=== PATIENT | male | born 1970 | race African-American/Black ===

== ENCOUNTER 2024-05-22 21:02 | Inpatient (IN) | payer OTHER, SELFPAY ==
[2024-05-22] VITALS (8 sets, daily range): BP systolic 73–153; BP diastolic 38–98; BMI 34.4
[2024-05-22 18:14] LABS: % Basophils 1.2 % (0-2); % Eosinophils 3.2 % (0-6); % Immature Granulocytes 0.7 % (0-0.5); % Monocytes 13.5 % (1.7-9.3); % Neutrophils 33.4 % (42.2-75.2); Absolute Basophils 0.1 10^3/uL (0-0.2); Absolute Eosinophils 0.1 10^3/uL (0-0.7); Absolute Lymphocytes 2.1 10^3/uL (1.2-3.4); Absolute Monocytes 0.6 10^3/uL (0.1-0.6); Absolute Neutrophils 1.4 10^3/uL (1.4-6.5); Hematocrit 42.3 % (39.0-52.0); Hemoglobin 15.2 g/dL (13.0-18.0); Mean Corp Hgb Conc. 35.9 g/dL (33.0-37.0); Mean Corpuscular Hgb 29.3 pg (27.0-31.0); Mean Corpuscular Volume 81.5 fL (80.0-94.0); Mean Platelet Volume 10.5 fL (7.4-10.4); Nucleated Red Blood Cells % 0 % (-); Platelet Count 204 10^3/uL (130-400); Red Blood Cell Count 5.19 10^6/uL (4.70-6.10); White Blood Cell Count 4.3 10^3/uL (4.8-10.8)
[2024-05-22 18:23] LABS: APTT 35.7 Sec (23.4-35.0)
[2024-05-22 18:31] LABS: ALT (SGPT) 17 U/L (0-50); AST (SGOT) 22 U/L (17-59); Albumin 4.8 g/dl (3.5-5.0); Alkaline Phosphatase 72 U/L (38-126); Blood Urea Nitrogen 21 mg/dl (9-20); Calcium 9.9 mg/dl (8.4-10.2); Carbon Dioxide 14 mmol/L (22-30); Chloride 104 mmol/L (98-107); Glucose 152 mg/dl (70-99); Potassium 4.8 mmol/L (3.5-5.1); Sodium 141 mmol/L (135-145); Total Protein 7.5 g/dl (6.3-8.2); eGFR > 60.00
[2024-05-22 18:38] LABS: NT-proBNP 156 pg/ml
--- NOTE | 2024-05-22 18:51 | ED.GENMED ---
History of Present Illness
<Di Lee PA-C - Last Filed: 05/22/24 23:39>
General
Chief Complaint: Change in Mental Status
Source: patient, family and ambulance crew
Exam Limitations: none
Time Seen by Provider: 05/22/24 18:00
History of Present Illness
History of Present Illness:
Patient is a 54-year-old male with past medical history of CVA last year which resulted in right-sided weakness, right-sided facial droop, as well as expressive aphasia, defibrillator in place, who presents to the emergency department via EMS from
home for evaluation after he reportedly lost consciousness. Family stated that they heard a scream from upstairs like the patient was in pain. They reports that they came upstairs to check on the patient and he was on the ground. He appeared to
be clutching his chest and they are unsure if he was experiencing chest pain. They were unsure if the patient was being shocked by his defibrillator. Patient can answer some questions and initially when asked if he has chest pain, patient says yes
however later he said no. Patient was reportedly not answering questions for medics but then started to answer more questions once they arrived to the emergency department. Patient is unable to offer any additional complaints. Patient endorses a
history of seizure disorder however patient's son denies it.
Past History
<Di Lee PA-C - Last Filed: 05/22/24 23:39>
Past History
ED Past Medical History: CVA
ED Past Surgical History: Other (Defibrillator placement)
Social History
Tobacco: Non-smoker
Alcohol: None
Drug: None
Review of Systems
<Di Lee PA-C - Last Filed: 05/22/24 23:39>
Review of Systems
Allergies reviewed?: Yes
Unable to obtain full review of systems at this time due to: other (expressive aphasia)
Other source history: family and ambulance crew
All Other Systems: Not applicable
Constitutional: Reports no symptoms
EENT: Reports no symptoms
Respiratory: Reports no symptoms
Cardiac: Reports chest pain (possible)
ABD/GI: Reports no symptoms
: Reports no symptoms
Musculoskeletal: Reports no symptoms
Skin: Reports no symptoms
Neurological: Reports no symptoms
Endocrine: Reports no symptoms
Hematologic/Lymphatic: Reports no symptoms
Psychiatric: Reports no symptoms
Phy Exam
<Di Lee PA-C - Last Filed: 05/22/24 23:39>
General Physical Exam
General Presentation: well appearing and no apparent distress
General Skin: warm and dry
General Habitus: normal
General Mental: alert
General Hydration: appears well hydrated
ENT Exam
ENT Exam: EOMI, pharynx normal, neck supple, normocephalic and other (abrasions to the left lateral aspect of the tongue)
Eye Exam
Eye Exam: PERRL, cornea clear and conjunctiva normal
Cardiovascular Exam
Cardiovascular Exam: regular rate/rhythm, no edema, no murmur and normal peripheral pulses
Pulmonary Exam
Pulmonary Exam: lungs clear, no respiratory distress, no rales, no crackles, no rhonchi, no stridor, no wheezing and no cough
Gastrointestinal Exam
Gastrointestinal Exam: normal bowel sounds, non tender, soft, no organomegaly, no pulsatile mass and non distended
Neurological Exam
Neurological Exam: alert, expressive aphasia and other (right sided facial droop, RUE and RLE weakness)
Musculoskeletal Exam
Musculoskeletal Exam: full ROM and no edema
Skin Exam
Skin Exam: normal color, warm/dry, no rash and no petechia
Psychiatric Exam
Psychiatric Exam: normal mood/affect
Course
<Di Lee PA-C - Last Filed: 05/22/24 23:39>
Orders/Labs/Results
Orders:
Orders
05/22/24 Breakfast
Sodium, 2 Gram
Low Sodium: 2000 brian/ 17 CHO Diabetic
05/22/24 17:56
EKG [Electrocardiogram (*1)] Stat
Reason for Study: Fatigue / Weakness
05/22/24 17:57
EKG- Treatment ONCE
05/22/24 18:04
Alcohol Urgent
CBC/With Diff [Complete Blood Count/With Diff] Urgent
CMP [Comprehensive Metabolic Panel] Urgent
Magnesium Urgent
Comment: ADD ON
PTT Urgent
Pro-BNP [NT-proBNP] Urgent
Troponin I Urgent
Comment: ADD ON
05/22/24 18:23
CT Head W/o Iv Contrast Urgent
Comment:
Reason For Exam: fall, hx of CVA
05/22/24 18:43
Add On- LAB Stat
Tests Added?: TROPONIN
05/22/24 19:12
Interrogate Pacemaker- Treatment ONCE
05/22/24 20:42
Admit/Transfer Patient As Directed
Co-Sign Provider:
Level of Care: Inpatient admission
Assign to:: Telemetry
Physician / Group: Htay
Diagnosis: Syncope, BARBY, Metabolic Acidosis
Reason for Telemetry: Syncope
Date to Stop Telemetry: 05/24/24
Time to Stop Telemetry: 11:00
Reason for Hospitalization: BARBY, Syncope
Expected length of stay greater than two midnights?: Yes
ELOS- Estimated Length of Stay in days: 3
I certify the patient meets the requirements for IP care: Yes
PRN Pain Medication Management As Directed
May give lesser potent ordered pain med per pt: Yes
preference::
Protocol:: Medication orders for pain may be administered in a
manner that supports deferring to patient preference
when the pt is:
- Requesting an ordered lesser potent pain medication.
Least to most potent pain medications are defined
as: acetaminophen < NSAID < tramadol < opioids
(morphine, oxycodone, hydromorphone).
- Requesting a lesser dose of the same medication IF
ORDERED.
- Requesting a less intrusive route of administration
if both routes are prescribed by the provider (PO <
IV).
05/22/24 20:45
Code Status As Directed
Resuscitation Status: Full Code
05/22/24 20:48
Add On- LAB Urgent
Tests Added?: magnesium
05/22/24 20:51
Add On- LAB Urgent
Tests Added?: alcohol
05/22/24 21:27
Lactic Acid Urgent
Urine Drug Abuse Screen Urgent
Date Specimen was Collected: 05/22/24
Time Specimen was Collected: 21:06
05/22/24 21:52
Acetaminophen [Tylenol] 650 mg PO Q4HPRN PRN
Dextrose 50%-Water [Dextrose 50% Syringe] 12.5 grams IV [id number] PRN
Glucagon [GlucaGen] 1 mg IM PRN PRN
05/22/24 21:52
Echo 2D MMode Color/Doppler Routine
Reason for Study: syncope, heart failure
Activity As Directed
Activity Level: Out of Bed- Chair
With Assistance
Bedside Glucose Monitoring As Directed
Frequency: AC&HS
Additional Instructions:: Change to q6h if pt on TPN, tube feeding or not eating
I&O [Intake/ Output] As Directed
Frequency: q12h
Obtain Records As Directed
Dates of Information to be Released: Most Recent
Type of Information Requested: Lab Results
H&P
Discharge Summary
Obtain Records from: [facility] (Recent 2months ago)
Comment: [facility] - 2022
Precautions As Directed
Type of Precautions: Seizure
Vital Signs As Directed
Frequency: Per unit guidelines
Weight As Directed
Frequency: Daily
Ot Eval And Treat Routine
Pt Eval And Treat Routine
Activity Level: Out of Bed-Early Mobility
05/22/24 22:00
Atorvastatin [Lipitor] 40 mg PO HS
Quetiapine Fumarate [Seroquel] 50 mg PO HS
05/22/24 22:15
Rivaroxaban [Xarelto] 20 mg PO DAILY@1700
05/22/24 23:00
Troponin I Q6H
Famotidine [Pepcid] 20 mg PO BID
05/23/24 05:00
Troponin I Q6H
05/23/24 06:00
Basic Metabolic Panel IN AM
Complete Blood Count/No Diff IN AM
Glycohemoglobin (HgbA1c) IN AM
05/23/24 07:30
Insulin Aspart Corrective Low [Novolog Flexpen-Low Resistance] See Protocol SC AC
05/23/24 08:00
Allopurinol [Zyloprim] 200 mg PO DAILY
Carvedilol [Coreg] 37.5 mg PO BID
ISOSORBIDE MONOnitrate ER [Imdur (Extended Release)] 60 mg PO DAILY
05/23/24 11:00
Troponin I Q6H
05/24/24 11:00
DC Protocol for Telemetry ONCE
Abnormal Lab Results
05/22/24
18:04
WBC 4.3 L 10^3/uL
(4.8-10.8)
MPV 10.5 H fL
(7.4-10.4)
Immature Gran % 0.7 H %
(0-0.5)
Neutrophils % 33.4 L %
(42.2-75.2)
Monocytes % 13.5 H %
(1.7-9.3)
APTT 35.7 H Sec
(23.4-35.0)
Carbon Dioxide 14 L* mmol/L
(22-30)
BUN 21 H mg/dl
(9-20)
Creatinine 1.4 H mg/dL
(0.7-1.3)
Glucose 152 H mg/dl
(70-99)
Magnesium 2.4 H mg/dl
(1.6-2.3)
Troponin I 0.036 H* ng/ml
05/22/24 18:04
05/22/24 18:04
Vital Signs
Initial and Last Documented VS:
Initial Vital Signs
Temp Pulse Resp BP Pulse Ox
98.3 F 96 25 121/72 96
05/22/24 17:58 05/22/24 17:58 05/22/24 17:58 05/22/24 17:58 05/22/24 17:58
Last Documented Vital Signs
Temp Pulse Resp BP Pulse Ox
98.6 F 102 16 133/85 98
05/22/24 22:16 05/22/24 22:16 05/22/24 22:16 05/22/24 22:16 05/22/24 22:16
<Wenceslao Molina, DO - Last Filed: 05/22/24 22:24>
Orders/Labs/Results
Orders:
Orders
05/22/24 Breakfast
Sodium, 2 Gram
Low Sodium: 2000 brian/ 17 CHO Diabetic
05/22/24 17:56
EKG [Electrocardiogram (*1)] Stat
Reason for Study: Fatigue / Weakness
05/22/24 17:57
EKG- Treatment ONCE
05/22/24 18:04
Alcohol Urgent
CBC/With Diff [Complete Blood Count/With Diff] Urgent
CMP [Comprehensive Metabolic Panel] Urgent
Magnesium Urgent
Comment: ADD ON
PTT Urgent
Pro-BNP [NT-proBNP] Urgent
Troponin I Urgent
Comment: ADD ON
05/22/24 18:23
CT Head W/o Iv Contrast Urgent
Comment:
Reason For Exam: fall, hx of CVA
05/22/24 18:43
Add On- LAB Stat
Tests Added?: TROPONIN
05/22/24 19:12
Interrogate Pacemaker- Treatment ONCE
05/22/24 20:42
Admit/Transfer Patient As Directed
Co-Sign Provider:
Level of Care: Inpatient admission
Assign to:: Telemetry
Physician / Group: Htay
Diagnosis: Syncope, BARBY, Metabolic Acidosis
Reason for Telemetry: Syncope
Date to Stop Telemetry: 05/24/24
Time to Stop Telemetry: 11:00
Reason for Hospitalization: BARBY, Syncope
Expected length of stay greater than two midnights?: Yes
ELOS- Estimated Length of Stay in days: 3
I certify the patient meets the requirements for IP care: Yes
PRN Pain Medication Management As Directed
May give lesser potent ordered pain med per pt: Yes
preference::
Protocol:: Medication orders for pain may be administered in a
manner that supports deferring to patient preference
when the pt is:
- Requesting an ordered lesser potent pain medication.
Least to most potent pain medications are defined
as: acetaminophen < NSAID < tramadol < opioids
(morphine, oxycodone, hydromorphone).
- Requesting a lesser dose of the same medication IF
ORDERED.
- Requesting a less intrusive route of administration
if both routes are prescribed by the provider (PO <
IV).
05/22/24 20:45
Code Status As Directed
Resuscitation Status: Full Code
05/22/24 20:48
Add On- LAB Urgent
Tests Added?: magnesium
05/22/24 20:51
Add On- LAB Urgent
Tests Added?: alcohol
05/22/24 21:27
Lactic Acid Urgent
Urine Drug Abuse Screen Urgent
Date Specimen was Collected: 05/22/24
Time Specimen was Collected: 21:06
05/22/24 21:52
Acetaminophen [Tylenol] 650 mg PO Q4HPRN PRN
Dextrose 50%-Water [Dextrose 50% Syringe] 12.5 grams IV [id number] PRN
Glucagon [GlucaGen] 1 mg IM PRN PRN
05/22/24 21:52
Echo 2D MMode Color/Doppler Routine
Reason for Study: syncope, heart failure
Activity As Directed
Activity Level: Out of Bed- Chair
With Assistance
Bedside Glucose Monitoring As Directed
Frequency: AC&HS
Additional Instructions:: Change to q6h if pt on TPN, tube feeding or not eating
I&O [Intake/ Output] As Directed
Frequency: q12h
Obtain Records As Directed
Dates of Information to be Released: Most Recent
Type of Information Requested: Lab Results
H&P
Discharge Summary
Obtain Records from: [facility] (Recent 2months ago)
Comment: [facility] - 2022
Precautions As Directed
Type of Precautions: Seizure
Vital Signs As Directed
Frequency: Per unit guidelines
Weight As Directed
Frequency: Daily
Ot Eval And Treat Routine
Pt Eval And Treat Routine
Activity Level: Out of Bed-Early Mobility
05/22/24 22:00
Atorvastatin [Lipitor] 40 mg PO HS
Quetiapine Fumarate [Seroquel] 50 mg PO HS
05/22/24 22:15
Rivaroxaban [Xarelto] 20 mg PO DAILY@1700
05/22/24 23:00
Troponin I Q6H
Famotidine [Pepcid] 20 mg PO BID
05/23/24 05:00
Troponin I Q6H
05/23/24 06:00
Basic Metabolic Panel IN AM
Complete Blood Count/No Diff IN AM
Glycohemoglobin (HgbA1c) IN AM
05/23/24 07:30
Insulin Aspart Corrective Low [Novolog Flexpen-Low Resistance] See Protocol SC AC
05/23/24 08:00
Allopurinol [Zyloprim] 200 mg PO DAILY
Carvedilol [Coreg] 37.5 mg PO BID
ISOSORBIDE MONOnitrate ER [Imdur (Extended Release)] 60 mg PO DAILY
05/23/24 11:00
Troponin I Q6H
05/24/24 11:00
DC Protocol for Telemetry ONCE
Abnormal Lab Results
05/22/24
18:04
WBC 4.3 L 10^3/uL
(4.8-10.8)
MPV 10.5 H fL
(7.4-10.4)
Immature Gran % 0.7 H %
(0-0.5)
Neutrophils % 33.4 L %
(42.2-75.2)
Monocytes % 13.5 H %
(1.7-9.3)
APTT 35.7 H Sec
(23.4-35.0)
Carbon Dioxide 14 L* mmol/L
(22-30)
BUN 21 H mg/dl
(9-20)
Creatinine 1.4 H mg/dL
(0.7-1.3)
Glucose 152 H mg/dl
(70-99)
Magnesium 2.4 H mg/dl
(1.6-2.3)
Troponin I 0.036 H* ng/ml
05/22/24 18:04
05/22/24 18:04
Vital Signs
Initial and Last Documented VS:
Initial Vital Signs
Temp Pulse Resp BP Pulse Ox
98.3 F 96 25 121/72 96
05/22/24 17:58 05/22/24 17:58 05/22/24 17:58 05/22/24 17:58 05/22/24 17:58
Last Documented Vital Signs
Temp Pulse Resp BP Pulse Ox
98.6 F 102 16 133/85 98
05/22/24 22:16 05/22/24 22:16 05/22/24 22:16 05/22/24 22:16 05/22/24 22:16
<Di Lee PA-C - Last Filed: 05/22/24 23:39>
*Critical Care Note
Total Time (30-74mins, 75-104mins- exclusive of procedures): Not Applicable
<Di Lee PA-C - Last Filed: 05/22/24 23:39>
Update Note
Update Note:
Patient is a 54-year-old male with past medical history of CVA with residual deficits, defibrillator in place, brought to the emergency department for an episode in which the patient was found on the ground by family members. It is difficult to
obtain a full history due to the patient's expressive aphasia from his previous CVA. On arrival, patient's vital signs are stable, he is afebrile. On exam, patient is in no acute distress but has difficulty answering questions secondary to his
aphasia, he does have right-sided weakness although according to EMS and family this is his baseline. EKG was obtained and demonstrates no acute ischemic changes, no evidence of dysrhythmia. CT of the head demonstrates no acute abnormality, old
infarct is as noted. Labs are notable for elevated CO2, creatinine is 1.4 with unknown baseline, troponin is slightly elevated. Defibrillator was interrogated and no events were noted. Patient's episode could be due to seizure versus syncope.
Will admit the patient for further evaluation and monitoring. Patient and his family aware of the plan and agreed.
ED Attending Note
<Di Lee PA-C - Last Filed: 05/22/24 23:39>
-
Portions of this chart may have been created with voice recognition software.� Occasional wrong word or��sound alike� substitutions may have occurred due to the inherent limitations of voice recognition software.
<Wenceslao Molina DO - Last Filed: 05/22/24 22:24>
ED Attending Note
Patient seen and examined by attending physician: Yes
ED Attending Note:
I reviewed and agree with history and treatment plan by Di Lee. My exam reveals 54-year-old male with expressive aphasia and right-sided paralysis, but answering some questions. He likely had a seizure. Unclear complete history. Reviewed
cardiac tracings from [place], no signs of dysrhythmia. Admit to hospitalist
Discharge Plan
Departure
Patient Disposition: Admit
Date of Disposition: 05/22/24
Time of Disposition: 20:14
Presentation/result/management discussed w/ accepting MD/DO: Hospitalist
Discharge Problem:
Unresponsive episode
Interventions
Interventions:
*Risk Screen - Suicide Last Done: 05/22/24 18:38
*General Assessment Last Done: 05/22/24 18:38
*Neglect/Abuse Screening Last Done: 05/22/24 19:00
ED- Fall Risk Assessment Last Done: 05/22/24 19:00
*ED COVID-19 Vaccine History Last Done: 05/22/24 18:38
*Nursing Disposition Last Done: 05/22/24 21:50
ED- Pulmonary Assessment Last Done: 05/22/24 19:00
ED- Neurological Assessment Last Done: 05/22/24 18:40
ED- Cardiac Assessment Last Done: 05/22/24 19:00
ED Swallowing Screen Last Done: 05/22/24 19:00
Discharge Date and Time
Discharge Date/Time: 05/22/24 21:50
[2024-05-22 19:12] LABS: Troponin I 0.036 ng/ml
--- NOTE | 2024-05-22 20:42 | HPS.HSE ---
Family Physician
-
Family Physician: Wenceslao Carranza
Chief Complaint
-
Potential Syncopal Episode
History of Present Illness
Patient is a 54 yo male with hx of CAD w/ previous ND, CHF with an ICD, T2DM, CVA 1 year ago with residual right-sided deficits, facial droop, and aphasia who presents for evaluation of a potential syncopal episode that occurred earlier today.
History provided predominantly by patient's son. He had called out for help at home and his partner found him shaking as if he 'being shocked.' It is unclear if he fully lost consciousness or fell. Interrogation of his defibrillator showed no acute
events. Pt denies feeling dizzy or feeling faint before the episode occurred. He denies chest pain, palpitations, diaphoresis, shorntess of breath or new focal neurologic symptoms. He denies any prior history of seizure.
Medical History
Past Medical History
Past Medical History: Reports Other
Additional Past Medical History:
CVA with residual Right Hemiparesis and Expressive Aphasia
Coronary Artery Disease
Chronic HFrEF
Paroxysmal Atrial Fibrillation
Essential Hypertension
Hyperlipidemia
Diabetes Mellitus, Type II
Gout
GERD
Past Surgical History: Reports Other
Additional Past Surgical History:
Defibrillator
Social History
Tobacco: Non-smoker
Alcohol: None
Family History
Family History: Not pertinent
Allergies / Home Medications
Allergies reflects when Allergies were last updated in [email or web address].
Home Medications with original date entered in [email or web address]
Allergy/Medication List:
Allergies
Allergy/AdvReac Type Severity Reaction Status Date / Time
No Allergy Information Allergy Unverified 05/22/24 18:08
Available
Home Medications
allopurinol 200 mg tablet 200 mg PO DAILY 05/22/24
atorvastatin 40 mg tablet 40 mg PO HS 05/22/24
carvedilol 25 mg tablet 37.5 mg PO BID 05/22/24
colchicine 0.6 mg tablet 0.6 mg PO BIDPRN PRN gout 05/22/24
dapagliflozin propanediol 10 mg tablet (Farxiga) 10 mg PO DAILY 05/22/24
famotidine 20 mg tablet 20 mg PO BID 05/22/24
furosemide 20 mg tablet 20 mg PO DAILY 05/22/24
isosorbide mononitrate 60 mg tablet,extended release 24 hr 60 mg PO DAILY 05/22/24
quetiapine 50 mg tablet 50 mg PO HS 05/22/24
rivaroxaban 20 mg tablet (Xarelto) 20 mg PO DAILY@1700 05/22/24
sacubitril 24 mg-valsartan 26 mg tablet (Entresto) 1 tab PO BID 05/22/24
spironolactone 50 mg tablet 50 mg PO DAILY 05/22/24
Review of Systems
-
Unable to obtain full review of systems at this time due to: Other (Expressive Aphasia)
Physical Exam
Vital Signs
Vital Signs
Temp Pulse Resp BP Pulse Ox
98.3 F 77 21 137/90 98
05/22/24 17:58 05/22/24 20:00 05/22/24 20:00 05/22/24 20:00 05/22/24 20:00
Physical Exam
General: Well Developed, Well Nourished and Comfortable
HEENT: Anicteric and Moist mucous membranes
Respiratory: Clear and Non Labored Respirations
Cardiac: S1/S2 and Regular Rhythm; No Murmur
GI: Soft and Non Tender
Rectal: Deferred by Provider
Musculoskeletal: No Clubbing, No Cyanosis and No Edema
Skin: Warm and Dry; No Rash
Neuro: Awake, Alert and Other (Chronic expressive aphasia, Chronic right facial droop, and Chronic right hemiparesis)
Psych: Calm
Laboratory Results
-
05/22/24 18:04
05/22/24 18:04
Laboratory Results
APTT 35.7 Sec (23.4-35.0) H 05/22/24 18:04
Total Bilirubin 1.0 mg/dl (0.2-1.3) 05/22/24 18:04
AST 22 U/L (17-59) 05/22/24 18:04
ALT 17 U/L (0-50) 05/22/24 18:04
Alkaline Phosphatase 72 U/L (38-126) 05/22/24 18:04
Troponin I Cancelled 05/22/24 18:[address]:
No acute abnormalities
Mild diffuse cortical atrophy with old 9 cm left middle cerebral artery infarct
Data Reviewed
-
Lab Data: Labs Reviewed by me
Impression/Plan
-
'Shaking Episode' - Possible Syncope vs Near Syncope vs Seizure
-Consult Cardiology and Neurology
-Check Lactic Acid
-Check Echo
-Check EEG
-Seizure Precautions
High Anion Gap Metabolic Acidosis
Renal Insufficiency, unknown acute vs chronic
-Attempt to obtain records
-Hold Entresto, Farxiga, Lasix and Aldactone
-Recheck labs in AM
Coronary Artery Disease
-Continue isosorbide mononitrate
Chronic HFrEF
-Diuretics on hold
-Monitor Is&Os and Daily Weights
Paroxysmal Atrial Fibrillation
-Continue Xarelto
-Continue Coreg
Essential Hypertension
-Continue Coreg
Hyperlipidemia
-Continue atorvastatin
Diabetes Mellitus, Type II
-Check HgbA1c
-Farxiga on hold
-Monitor sugars and continue coverage insulin
CVA with residual Right Hemiparesis and Expressive Aphasia
-Consult PT/OT
DVT Proph: Xarelto
Code Status: Full Code
--- NOTE | 2024-05-22 20:44 | W.PN.UPDATE ---
Update Note
Progress Note Update
This note serves as an addendum to the H&P by farm crops teacher DENITA
HPI
54M HX CVA (2022)with residual Rt sided hemiparesis , facial droop , expressive aphasia, Prx AF on xarelto AICD implant, CAD HLD seen for evalaution of syncope vs near syncope
- was found on the floor by family when patient yelled out and called for help
- Hemodynamically stable
labs notable:
CO2 14, Cr of 1.4
Hi AG MA
TPNI 0.036. C
Reviewed VS: unremarkable
PE
Gen: expressive dysphasis
HEENT: anicteric
Neck: supple
Lungs: CTA
Cor: S1 S2
Abdomen: obese abdomen
BOAT PAINTER: chr expressive dysohagia
MS: no edema , No hip and kness pain with rolling from side to side of both LExs
Psych: unable t toexamdue to dysphagia
Data
Co214
Cr 1.4 - no prior Cr in [facility]
pro BNP 156
Hi AG MA
EKG : pending
HCT
No acute abnormalities
Mild diffuse cortical atrophy with old 9 cm left middle cerebral artery infarct
ASSESSMENT & PLAN
fall and found on the floor
Syncope vs near syncope
- NEG HCT
- EKG
- Ortho VSS
- ECHO
- fall precaution
- PT/OT
- DCA card consult
Hi AG MA
Renal insufficiency of unknown chronicity
- Held Frusemide
- Held spironolactone
- Trend Cr and metabolic acidosis
HX CHF suspect chr HFrEF
AICD implant
- stable: Not in acute HF
- daily wt while holding Frusemide , Aldactone and Entresto
- check ECHO
Elevated first TPNI; NIMI vs NSTEMI
Suspect CAD HX on GDMT
HLD
- denied CP
- Pending EKG
- Trend TPNI and serial EKG
- cont PETROLEUM SAMPLER IMN
- held Entresto
- cont Atorvastatin
- cont PETROLEUM SAMPLER Dapagliflozin
HX Prx AF
AICD implant
- cont. Carvedilol
- cont. Xarelto
HX CVA last yr with residual expressive dysphasia with Rt side hemepareiss
Gout
- stable
- cont. colchicine and allopurinol
DVT Px: on Xarelto
Code: Full code
IP TLM
[2024-05-22 21:22] LABS: Alcohol None Detected; Magnesium 2.4 mg/dl (1.6-2.3)
[2024-05-22 21:48] LABS: Amphetamines Negative (Negative); Barbiturates Negative (Negative); Benzodiazepines Negative (Negative); Buprenorphine Negative (Negative); Cocaine Negative (Negative); Lactic Acid 1.8 mmol/L (0.7-2.0)
[2024-05-22 21:49] LABS: Marijuana Negative (Negative); Methadone Negative (Negative); Methamphetamines Negative (Negative); Opiates Negative (Negative); Phencyclidine Negative (Negative); Tricyclic Antidepressants Negative (Negative)
[2024-05-22] MEDS: PEPCID 20 MG PO (22:34)
[2024-05-22] MEDS: LIPITOR 40 MG PO (22:34)
[2024-05-22] MEDS: TYLENOL 650 MG PO (22:34)
[2024-05-22] MEDS: SEROQUEL 50 MG PO (22:34)
[2024-05-22] MEDS: XARELTO 20 MG PO (22:34)
[2024-05-22] MEDS: DILAUDID 0.25 MG IV (23:03)
[2024-05-23] VITALS (7 sets, daily range): BP systolic 102–144; BP diastolic 73–88; PULSE 85–87; BMI 34.1
[2024-05-23 00:26] LABS: Troponin I 0.043 ng/ml
[2024-05-23 07:32] LABS: Hematocrit 41.5 % (39.0-52.0); Hemoglobin 15.2 g/dL (13.0-18.0); Mean Corp Hgb Conc. 36.6 g/dL (33.0-37.0); Mean Corpuscular Hgb 29.3 pg (27.0-31.0); Mean Corpuscular Volume 80.1 fL (80.0-94.0); Mean Platelet Volume 10.3 fL (7.4-10.4); Platelet Count 173 10^3/uL (130-400); Red Blood Cell Count 5.18 10^6/uL (4.70-6.10); Red Cell Dist. Width 13.1 % (11.5-14.5); White Blood Cell Count 7.6 10^3/uL (4.8-10.8)
[2024-05-23 07:56] LABS: Troponin I 0.031 ng/ml
--- NOTE | 2024-05-23 08:07 | CON.CAR ---
Addendum entered and electronically signed by Federico Bahena MD 05/23/24 17:50:
I saw and examined the patient.
The Business Planning Director's note was reviewed and I agree with the note.
Comment: Briefly, 54-year-old man past medical history of CVA complicated by expressive aphasia, cardiomyopathy status post ICD who presents following an episode of unresponsiveness
Unfortunately unable to obtain history from the patient due to his expressive aphasia. We have reached out to family members for further details regarding his past medical history and have requested records from prior minesweeping officer as well.
There was initially concern for arrhythmia as a cause of his symptoms however ICD interrogation here was unrevealing
Tele reviewed, no arrhythmia or significant pauses seen
Transthoracic echocardiogram with moderately reduced LV function however this may be his baseline as we have no prior for comparison
Low-level troponin elevation noted, peaked at 0.043, no need to repeat at this time
Would monitor on telemetry overnight. We will review records when available.
Appreciate neurology input regarding possible seizure
Original Note:
Consultation
Consultation Request
Date/Time Consultation Requested: 05/22/24 at 2203
Date/Time Consultation Performed: 05/23/24 at 0743
Requesting Provider: Dr. Dow
Performing Provider: Dr. Bahena
Reason for Consultation: Loss of consciousness, elevated Troponin
Medical History
-
History of Present Illness:
Patient came to [facility] yesterday after being found unresponsive and grabbing at his chest, cardiology is consulted for the LOC and elevated Troponin. Patient has a h/o CVA with expressive aphasia and he cannot answer questions. Called his son, Yesica,
and left a message asking for a call back. Based on available records, it appears that patient called out and when family ran to check on him they found him on the floor and grabbing his chest. Family called 911 and in [facility] his [employer] ICD
was checked and no evidence of arrhythmia or shocks. His initial Troponin was elevated at 0.036 and then trended up to 0.043, but now trending down. No ischemic changes on ECG. His outpatient minesweeping officer is unknown. His med list includes CM meds
and Xarelto so presumably he has a h/o CM and atrial arrhythmia.
PMH:
[employer] ICD
Likely CM
Likely h/o CHF
Likely h/o CAD
Likely h/o paroxysmal Afib
Chronic Xarelto OAC
h/o CVA with expressive aphasia
Past Medical History
Past Medical History: Other (in [facility])
Past Surgical History: Other ([employer] ICD)
Social History
Tobacco: Non-Smoker
Alcohol: Occasional (2-4 times a month)
Drug: None
Family History
Family History: Unable to Obtain (expressive aphasia)
Allergies / Home Medications
Allergy/AdvReac Type Severity Reaction Status Date / Time
No Allergy Information Allergy Unverified 05/22/24 18:08
Available
�Medication �Instructions �Recorded �Confirmed �Type
allopurinol 200 mg tablet 200 mg PO DAILY 05/22/24 05/22/24 History
atorvastatin 40 mg tablet 40 mg PO HS 05/22/24 05/22/24 History
carvedilol 25 mg tablet 37.5 mg PO BID 05/22/24 05/22/24 History
colchicine 0.6 mg tablet 0.6 mg PO BIDPRN PRN gout 05/22/24 05/22/24 History
dapagliflozin propanediol 10 mg 10 mg PO DAILY 05/22/24 05/22/24 History
tablet (Farxiga)
famotidine 20 mg tablet 20 mg PO BID 05/22/24 05/22/24 History
furosemide 20 mg tablet 20 mg PO DAILY 05/22/24 05/22/24 History
isosorbide mononitrate 60 mg 60 mg PO DAILY 05/22/24 05/22/24 History
tablet,extended release 24 hr
quetiapine 50 mg tablet 50 mg PO HS 05/22/24 05/22/24 History
rivaroxaban 20 mg tablet (Xarelto) 20 mg PO DAILY@1700 09/17/24 09/17/24 History
sacubitril 24 mg-valsartan 26 mg 1 tab PO BID 05/22/24 05/22/24 History
tablet (Entresto)
spironolactone 50 mg tablet 50 mg PO DAILY 05/22/24 05/22/24 History
Review of Systems
-
Unable to obtain full review of systems at this time due to: Patient Non Verbal
Physical Exam
Vital Signs
Temp Pulse Resp BP Pulse Ox
98.7 F 88 18 132/81 97
05/23/24 07:21 05/23/24 07:21 05/23/24 07:21 05/23/24 07:21 05/23/24 07:21
GEN: NAD. Awake and alert
HEENT: EOMI, MMM
LUNGS: Clear anterolaterally without wheeze
CV: Reg, S1/S2, no murmur
ABD: soft, BS+, NT, ND
EXT: No clubbing, cyanosis, lesions or edema B/L
NEURO: Gross non-focal
SKIN: Warm, dry and pink. No rash
Lab Results
05/23/24 06:50
Troponin I 0.031 ng/ml D 05/23/24 06:50
Hpk-K-Ftywuqmsbrn Pept 156 pg/ml 05/22/24 18:04
Impression / Plan
-
PCP: Dr. Wenceslao Carranza
Cardiology: Unknown
Impression:
Loss of consciousness
Elevated Troponin
Anion gap metabolic acidosis
[employer] ICD
Likely CM
Likely h/o CHF
Likely h/o CAD
Likely h/o paroxysmal Afib
Chronic Xarelto OAC
h/o CVA with expressive aphasia
Hyperglycemia
Echo 05/23/24: preliminary report EF 40%, mild TR
Plan:
-Patient came to [facility] yesterday after being found unresponsive and grabbing at his chest, cardiology is consulted for the LOC and elevated Troponin. Patient has a h/o CVA with expressive aphasia and he cannot answer questions. Called his son, Yesica,
and left a message asking for a call back. Based on available records, it appears that patient called out and when family ran to check on him they found him on the floor and grabbing his chest. Family called 911 and in [facility] his [employer] ICD
was checked and no evidence of arrhythmia or shocks. His initial Troponin was elevated at 0.036 and then trended up to 0.043, but now trending down. No ischemic changes on ECG. His outpatient minesweeping officer is unknown. His med list includes CM meds
and Xarelto so presumably he has a h/o CM and atrial arrhythmia.
-Called family this morning and left a message asking for a call back.
-Await echo report.
-ICD check in the ER was unremarkable and no evidence of shocks or arrhythmia.
-Outpatient doses of Farxiga 10 mg daily, Lasix 20 mg PO daily, spironolactone 50 mg daily and Entresto 24-26 mg BID are on hold.
-Outpatient doses of Coreg 37.5 mg BID, Imdur ER 60 mg daily continued.
-Outpatient dose of Xarelto 20 mg daily has been continued.
-His heart failure index on device check was trending up, but pro-BNP only 156. Lasix on hold. Check CXR.
-Await call back from family to find out name of his primary minesweeping officer and then can get records.
-ECG reviewed by me and no evidence of acute ischemic changes, he is in SR.
[2024-05-23 08:14] LABS: Blood Urea Nitrogen 21 mg/dl (9-20); Glucose 107 mg/dl (70-99)
[2024-05-23 08:15] LABS: Calcium 9.3 mg/dl (8.4-10.2); Carbon Dioxide 20 mmol/L (22-30); Chloride 104 mmol/L (98-107); Estimated Creatinine Clearance 101 ml/min; Sodium 141 mmol/L (135-145); eGFR > 60.00
--- NOTE | 2024-05-23 08:25 | CARDSERVLU ---
Echocardiogram with [facility] completed after protocol screening completed. Allergies verified.
Patent IV site: __L AC___
IV site flushed with 0.9% NaCl pre and post administration.
Diluted bolus method utilized to enhance visualization of ventricular montague.
Total volume given: __2__ mL
Patient tolerated all procedures well without complications.
[2024-05-23 08:39] LABS: Glycohemoglobin (HgbA1c) 5.9 % (4.0-5.6)
--- NOTE | 2024-05-23 09:38 | EEG.RPT ---
Electroencephalogram Report
Recording
Date of EE05/23/24
Type of EEG: Routine
Length of EEG recordin minutes
Done with Video Recording: Yes
Patient Status: Inpatient
Recording Conditions: Drowsy
Hyperventilation Performed: No
Photic Stimulation Performed: Yes
Report
LESS THAN 1 HOUR EEG REPORT
LESS THAN 1 HOUR EEG INTERPRETATION:
Mildly abnormal EEG for age due to mild diffuse bihemispheric slowing
CLINICAL CORRELATION:
This study was suggestive of mild diffuse cortical dysfunction without focal abnormality. No seizures were recorded.
Clinical correlation is advised.
METHODS:
A 21 channel digitized electroencephalogram (EEG) was performed in the [facility]. The 10/20 international system of electrode placement was used with ECG and lateral/vertical eye movements recorded. The [employer] system
was utilized.
QUALITY OF STUDY:
Good
ELECTROENCEPHALOGRAPHER IMPRESSION(S):
Background
Amplitude: Unremarkable
Anterior-Posterior Organization: Poor
Maximum: Delta
Asymmetry: None
Sleep
Drowsiness present
Photic Stimulation
Failed to activate the record
ECG
Normal sinus rhythm
[2024-05-23] MEDS: NOVOLOG FLEXPEN-LOW RESISTANCE SC ×2 (09:49→17:16)
[2024-05-23 09:54] LABS: Glucose - Point of Care 127 mg/dl (70-99)
[2024-05-23] MEDS: COREG 37.5 MG PO ×2 (09:54→20:22)
[2024-05-23] MEDS: ZYLOPRIM 200 MG PO (09:54)
[2024-05-23] MEDS: PEPCID 20 MG PO ×2 (09:54→20:22)
[2024-05-23] MEDS: IMDUR (EXTENDED RELEASE) 60 MG PO (09:54)
[2024-05-23 10:09] LABS: Creatine Phosphokinase 777 U/L (55-170)
[2024-05-23 10:16] LABS: B-Hydroxybutyrate 0.28 mmol/L (0.02-0.27)
[2024-05-23] MEDS: TYLENOL 650 MG PO ×3 (10:40→21:04)
--- NOTE | 2024-05-23 11:22 | CON.NEURO4 ---
Documented by User: Xochitl Bojorquez NP 05/23/24 12:18
Consultation - Neurology 4
-
CONSULTING PHYSICIAN: Rashad Middleton MD
REFERRING PHYSICIAN: Hospitalists/Felicity Frye PA-C
DICTATED BY: PAYAM Rutherford
DATE/TIME OF REQUEST: 05/22/24
DATE/TIME OF CONSULTATION: 05/23/24
Reason for Consultation: Concern for seizure
History of Present Illness:
This is a 54-year-old male who has presented to the hospital with report of loss of consciousness and whole body shaking. Patient is profoundly aphasic and this information is obtained from his friend/military logistics specialist at bedside. His friend reports that
in October 2023 the patient's son found him at his house on the ground, unable to speak and with right-sided weakness. He was taken to [facility] at that time and CT head demonstrated a large L MCA ischemic infarct. He was not a candidate for TNK/IAT due
to his last known well time being 48 hours prior and large ischemic infarct already demonstrated on CT head imaging. He went to rehab for several weeks and then has since been living with his friend at bedside who manages his medications, helps
prepare his food, and helps him bath. He is severely aphasic, has a right facial droop, and no use of his right arm at baseline. He walks without a walker and has not had any falls. He is taking Xarelto for Afib and has not missed any doses. He is
followed by [facility] as an outpatient.
Patient's friend reports that since his stroke, she has noted him doing abnormal head side-side jerking movements at times. She reports that his neurologist said this was a vertigo syndrome response. He has not previously had an EEG or been on an
antiseizure medication, he has not previously had any seizures that she knows of. For the past week she notes that he has been generally more weak and needing help to get out of bed which is unusual. His defibrillatory company and cardiology office
called her to let her know that they saw extra fluid around his heart, and they increased his lasix. He also has had a poor appetite and did not eat anything yesterday. She denies any fevers, infections, vomiting, or diarrhea. She also notes that he
has sleep apnea but does not have a cpap.
Yesterday (05/22/24), patient's military logistics specialist reports that he was lying in his bed and she was in another room when she heard a loud abnormal groaning-type sound. She went into his room and reports his eyes were open and he was staring to the left, his
upper extremities were rigid, he was having whole-body shaking, and he was not responding to her. She called 911. She denies any tongue-biting or bowel/bladder incontinence with this event. These symptoms spontaneously resolved after about 1 minute.
He then was clutching his chest and she was concerned that his AICD may have shocked him. CT head was obtained on arrival and is negative for any acute findings. Today (05/23/24), she reports he is drowsy but at his baseline. He complains of
left-sided pain and back pain.
Past Medical History: Large L MCA territory ischemic stroke 10/2023, paroxysmal Afib (Xarelto), HFrEF, CAD, CM, HTN, HLD, NIDDM, gout, GERD
Surgical History: AICD
Family History: Unknown.
Social History: Former alcohol abuse, drastically decreased alcohol intake after stroke, rare alcohol now. Denies tobacco and illicit drug use.
Allergies: No known allergies.
Home Medications: See below.
Review of Symptoms:
Patient denies any fever, headache, chest pain, shortness of breath, GI or symptoms.
�Per the HPI.�All systems are reviewed negative except above.
Physical Exam:
The patient is afebrile, abdomen is nondistended, breathing is unlabored, skin is warm and dry, no edema.
NIH Stroke Scale:
I performed the NIH stroke scale on the patient on 05/23/24 at 1100. The patient scored 15 points on the NIH stroke scale assessment, which were assigned as follows: See below.
Neurologic Examination:
The patient is drowsy, opens eyes to voice. He is oriented to self only, challenging to assess due to severe aphasia. He is able to follow some one-step commands. There is severe aphasia expressive>receptive. There is moderate dysarthria. On
cranial nerve assessment, pupils are 3 mm bilateral, round and reactive to light and accommodation. ANDRIA visual stevens. Extraocular movements are intact. There is right facial drooping at rest. Hearing is intact bilaterally to normal conversation
volume. Tongue palate and uvula are midline, there is a left tongue laceration. Motor strengths are 5/5 LUE/LLE, 0/5 RUE, and 5-/5 RLE on medical research [place] scale. There is drift in the RLE. No involuntary movement noted. Deep tendon reflexes
are 1+ bilateral upper and lower extremities and Babinski is absent bilaterally. ANDRIA sensation, double simultaneous, and coordination.
Lab Results: See below.
Neuro Imaging:
1. CT Head 05/22/24: No acute abnormalities. Mild diffuse cortical atrophy with old 9 cm left middle cerebral artery infarct.
2. EEG 05/23/24: Mildly abnormal EEG for age due to mild diffuse bihemispheric slowing
Differentials for the patient's presentation include:
1. This event was likely a generalized seizure without status epilepticus given gaze deviation, body stiffening and shaking, tongue laceration, and elevated CK level. This patient has a lower threshold for seizure given his old large ischemic
stroke and recent lack of oral intake.
Patient has the following risk factors for their symptoms: Large scar from old stroke, recent lack of oral intake
Recommendations:
-Initiate Keppra 500mg PO BID.
-Seizure precautions.
-Infection/metabolic workup per primary team.
-No driving, patient does not drive at baseline.
-Continue home Xarelto.
-Follow-up with his outpatient Neurologist.
Discussed patient care with: Dr. Middleton, Dr. Kimbrough, the patient, patient's military logistics specialist at bedside
Vital Signs and Labs
-
Vital Signs and Labs:
Vital Signs
Temp Pulse Resp BP Pulse Ox
97.7 F 97 12 102/73 98
05/23/24 11:49 05/23/24 11:49 05/23/24 11:49 05/23/24 11:49 05/23/24 11:49
Lab Results
05/23/24 06:50
05/23/24 06:50
APTT 35.7 Sec (23.4-35.0) H 05/22/24 18:04
Sodium 141 mmol/L (135-145) 05/23/24 06:50
Potassium 4.0 mmol/L (3.5-5.1) 05/23/24 06:50
BUN 21 mg/dl (9-20) H 05/23/24 06:50
Glucose 107 mg/dl (70-99) H 05/23/24 06:50
Calcium 9.3 mg/dl (8.4-10.2) 05/23/24 06:50
Uvg-G-Moayuamiqza Pept 156 pg/ml 05/22/24 18:04
Ur Buprenorphine Negative (Negative) 05/22/24 21:27
Medications
-
Medications:
Generic Name Dose Route Start Last Admin
Trade Name Freq PRN Reason Stop Dose Admin
Acetaminophen 650 mg 05/22/24 21:52 05/23/24 10:40
Acetaminophen 325 Mg Tablet PO 06/19/24 21:51 650 mg
Q4HPRN PRN Administration
mild pain/ fever>100.5F
Allopurinol 200 mg 05/23/24 08:00 05/23/24 09:54
Allopurinol 100 Mg Tablet PO 06/20/24 07:59 200 mg
DAILY THEO Administration
Atorvastatin Calcium 40 mg 05/22/24 22:00 05/22/24 22:34
Atorvastatin (Lipitor) 40 Mg Tablet PO 06/19/24 21:59 40 mg
HS THEO Administration
Carvedilol 37.5 mg 05/23/24 08:00 05/23/24 09:54
Carvedilol 25 Mg Tablet PO 06/20/24 07:59 37.5 mg
BID THEO Administration
Dextrose 12.5 grams 05/22/24 21:52
Dextrose 50% (0.5 Grams/Ml) 50 Ml Syringe IV 06/19/24 21:51
[id number] PRN
hypoglycemia
Protocol
Famotidine 20 mg 05/22/24 23:00 05/23/24 09:54
Famotidine 20 Mg Tablet PO 06/19/24 22:59 20 mg
BID THEO Administration
Glucagon 1 mg 05/22/24 21:52
Glucagon 1 Mg Vial IM 06/19/24 21:51
PRN PRN
hypoglycemia
Protocol
Hydromorphone HCl 0.5 mg 05/23/24 10:59
Hydromorphone 0.5 Mg/0.5 Ml Syringe IV 06/06/24 10:58
Q4HPRN PRN
severe pain
Insulin Aspart 0 units 05/23/24 07:30 05/23/24 09:49
Insulin Aspart Low Resistance 300 Units/3 Ml Pen.Injctr SC 06/20/24 07:29 Not Given
AC THEO
Protocol
Isosorbide Mononitrate 60 mg 05/23/24 08:00 05/23/24 09:54
Isosorbide Mononitrate 60 Mg Extended Release Tablet PO 06/20/24 07:59 60 mg
DAILY THEO Administration
Levetiracetam 500 mg 05/23/24 12:00
Levetiracetam Solution (500 Mg/5 Ml) Cup PO 06/20/24 11:59
BID THEO
Oxycodone HCl 5 mg 05/23/24 10:59
Oxycodone 5 Mg Regular Release Tablet PO 06/06/24 10:58
Q4HPRN PRN
moderate pain
Quetiapine Fumarate 50 mg 05/22/24 22:00 05/22/24 22:34
Quetiapine 25 Mg Tablet PO 06/19/24 21:59 50 mg
HS THEO Administration
Rivaroxaban 20 mg 05/22/24 22:15 05/22/24 22:34
Rivaroxaban 20 Mg Tablet PO 06/19/24 22:14 20 mg
DAILY@1700 THEO Administration
Sodium Chloride 0 flush 05/22/24 22:00
Sodium Chloride 0.9% (Flush) Syringe IV 06/19/24 21:59
PER PROTOCOL THEO
NIH Stroke Score
Subsequent NIH Scale
Date of Subsequent NIH Scale: 05/23/24
Time of Subsequent NIH Scale: 11:00
NIH Stroke Score
Level of Consciousness: 1 - Arousable
LOC Questions: 2-Neither correct
LOC Commands: 1-Performs one correctly
Best Horizontal Gaze: 0-Normal
Visual Stevens: 0=Normal, no visual loss (ANDRIA)
Facial Palsy: 2=Partial paralysis
Motor - Right Arm: 4=No movement
Motor - Left Arm: 0=No drift 10 seconds
Motor - Right Le-Drift < 5 seconds
Motor - Left Le-No drift 5 seconds
Limb Ataxia: 0-Absent (ANDRIA)
Sensation: 0-Normal ([place]RIA)
Best Language: 2-Severe aphasia
Dysarthria: 2-Severe slurring
Extinction and Inattention: 0-No abnormality (ANDRIA)
Total Score:: 15
Modified Luce (mRS) Score
Modified Luce Scale (mRS): Moderate disability. Requires some help, able to walk unassisted.
Score: 3

Documented by User: Rashad Middleton MD 05/24/24 12:15
Consultation - Neurology 4
-
CONSULTING PHYSICIAN: Rashad Middleton MD
REFERRING PHYSICIAN: Hospitalists/Felicity Frye PA-C
DICTATED BY: PAYAM Rutherford
DATE/TIME OF REQUEST: 05/22/24
DATE/TIME OF CONSULTATION: 05/23/24
Reason for Consultation: Concern for seizure
History of Present Illness:
This is a 54-year-old male who has presented to the hospital with report of loss of consciousness and whole body shaking. Patient is profoundly aphasic and this information is obtained from his friend/military logistics specialist at bedside. His friend reports that
in October 2023 the patient's son found him at his house on the ground, unable to speak and with right-sided weakness. He was taken to [facility] at that time and CT head demonstrated a large L MCA ischemic infarct. He was not a candidate for TNK/IAT due
to his last known well time being 48 hours prior and large ischemic infarct already demonstrated on CT head imaging. He went to rehab for several weeks and then has since been living with his friend at bedside who manages his medications, helps
prepare his food, and helps him bath. He is severely aphasic, has a right facial droop, and no use of his right arm at baseline. He walks without a walker and has not had any falls. He is taking Xarelto for Afib and has not missed any doses. He is
followed by [facility] as an outpatient.
Patient's friend reports that since his stroke, she has noted him doing abnormal head side-side jerking movements at times. She reports that his neurologist said this was a vertigo syndrome response. He has not previously had an EEG or been on an
antiseizure medication, he has not previously had any seizures that she knows of. For the past week she notes that he has been generally more weak and needing help to get out of bed which is unusual. His defibrillatory company and cardiology office
called her to let her know that they saw extra fluid around his heart, and they increased his lasix. He also has had a poor appetite and did not eat anything yesterday. She denies any fevers, infections, vomiting, or diarrhea. She also notes that he
has sleep apnea but does not have a cpap.
Yesterday (05/22/24), patient's military logistics specialist reports that he was lying in his bed and she was in another room when she heard a loud abnormal groaning-type sound. She went into his room and reports his eyes were open and he was staring to the left, his
upper extremities were rigid, he was having whole-body shaking, and he was not responding to her. She called 911. She denies any tongue-biting or bowel/bladder incontinence with this event. These symptoms spontaneously resolved after about 1 minute.
He then was clutching his chest and she was concerned that his AICD may have shocked him. CT head was obtained on arrival and is negative for any acute findings. Today (05/23/24), she reports he is drowsy but at his baseline. He complains of
left-sided pain and back pain.
Past Medical History: Large L MCA territory ischemic stroke 10/2023, paroxysmal Afib (Xarelto), HFrEF, CAD, CM, HTN, HLD, NIDDM, gout, GERD
Surgical History: AICD
Family History: Unknown.
Social History: Former alcohol abuse, drastically decreased alcohol intake after stroke, rare alcohol now. Denies tobacco and illicit drug use.
Allergies: No known allergies.
Home Medications: See below.
Review of Symptoms:
Patient denies any fever, headache, chest pain, shortness of breath, GI or symptoms.
�Per the HPI.�All systems are reviewed negative except above.
Physical Exam:
The patient is afebrile, abdomen is nondistended, breathing is unlabored, skin is warm and dry, no edema.
NIH Stroke Scale:
I performed the NIH stroke scale on the patient on 05/23/24 at 1100. The patient scored 15 points on the NIH stroke scale assessment, which were assigned as follows: See below.
Neurologic Examination:
The patient is drowsy, opens eyes to voice. He is oriented to self only, challenging to assess due to severe aphasia. He is able to follow some one-step commands. There is severe aphasia expressive>receptive. There is moderate dysarthria. On
cranial nerve assessment, pupils are 3 mm bilateral, round and reactive to light and accommodation. [place]RI[place] visual stevens. Extraocular movements are intact. There is right facial drooping at rest. Hearing is intact bilaterally to normal conversation
volume. Tongue palate and uvula are midline, there is a left tongue laceration. Motor strengths are 5/5 LUE/LLE, 0/5 RUE, and 5-/5 RLE on medical research [place] scale. There is drift in the RLE. No involuntary movement noted. Deep tendon reflexes
are 1+ bilateral upper and lower extremities and Babinski is absent bilaterally. ANDRIA sensation, double simultaneous, and coordination.
Lab Results: See below.
Neuro Imaging:
1. CT Head 05/22/24: No acute abnormalities. Mild diffuse cortical atrophy with old 9 cm left middle cerebral artery infarct.
2. EEG 05/23/24: Mildly abnormal EEG for age due to mild diffuse bihemispheric slowing
Differentials for the patient's presentation include:
1. This event was likely a generalized seizure without status epilepticus given gaze deviation, body stiffening and shaking, tongue laceration, and elevated CK level. This patient has a lower threshold for seizure given his old large ischemic
stroke and recent lack of oral intake.
Patient has the following risk factors for their symptoms: Large scar from old stroke, recent lack of oral intake
Recommendations:
-Initiate Keppra 500mg PO BID.
-Seizure precautions.
-Infection/metabolic workup per primary team.
-No driving, patient does not drive at baseline.
-Continue home Xarelto.
-Follow-up with his outpatient Neurologist.
Discussed patient care with: Dr. Middleton, Dr. Kimbrough, the patient, patient's military logistics specialist at bedside
Neurology Attending Note:
54-year-old male with history of left MCA infarction with right hemiplegia aphasia who was able to function independently till he suffered multiple seizures. Following admission he was placed on Keppra 500 mg twice daily. He has had no further
seizures
On examination: He is awake alert oriented to person. Speech is limited with expressive aphasia he can follow directions and simple commands. Cranial nerve examination shows slight facial asymmetry. Motor examination reveals right spastic
hemiparesis. Gait: He is able to walk with minimal support
Plan: He may go home on Keppra 500 twice daily. Continue Xarelto. He will need assistance in placement issues.
NIH Stroke Score
NIH Stroke Score
Total Score:: 15
Modified Luce (mRS) Score
Score: 3
[2024-05-23 11:55] LABS: Glucose - Point of Care 157 mg/dl (70-99)
[2024-05-23 12:08] LABS: Troponin I 0.024 ng/ml
[2024-05-23] MEDS: NOVOLOG FLEXPEN-LOW RESISTANCE 1 UNITS SC (12:16)
--- NOTE | 2024-05-23 14:29 | W.PN.HOSP.TC ---
Today's Communication/Plan
-
See plan
Assessment / Plan
Assessment / Plan
Impression:
Witnessed tonicoclonic seizure at home.
Mild rhabdomyolysis secondary to above
Non-ME troponin elevation likely function of rhabdo.
Acute kidney injury
Elevated anion gap metabolic acidosis.
Conditions prior to admission:
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
Likely paroxysmal A-fib.
Likely cardiomyopathy
Status post AICD.
Chronic anticoagulation with Xarelto
Diabetes
Gout
Obesity with BMI of 34
Plan
Witnessed tonic-clonic seizure at home (history was taken from patient's friend at the bedside)
CT scan of the head with no acute abnormalities. Mild diffuse cortical atrophy with old 9 cm left middle cerebral artery infarct.
Neurologic status close to baseline.
EEG with no epileptic activity.
Discussed with neurology
Initiated on Keppra 500 mg twice daily
Orthostatic vitals
Cardiovascular
Has non-ME troponin elevation likely function of mild rhabdomyolysis postseizure.
Volume status compensated
Noted mildly elevated pro CHF BNP at 1000.
AICD interrogated with no events
Echo pending
Preadmission cardiovascular regimen including Coreg/Entresto/Imdur/Lasix/spironolactone.
Hold diuretics and Entresto given BARBY
BARBY baseline creatinine improves 1.4�1.2 baseline
Mild elevated anion gap metabolic acidosis likely in the settings of tonic-clonic activity.
Noted with mild elevation of serum acetone while on Farxiga, although with low clinical suspicion for SGLT2 related ketoacidosis.
Hold Farxiga acutely.
Follow BMP
Severe diffuse pain
Exam with no noticeable musculoskeletal abnormalities.
Reported no relief with Tylenol. Will start oxycodone/IV hydromorphone with attempt to wean off over the next 24 hours. Monitor for oversedation.
Full code
DVT prophylaxis Xarelto
Anticipated Discharge: 24 - 48 hours
Subjective/Interval History
-
Date of Service: May 23, 2024
Objective Data
-
Labs:
Laboratory Results
05/23/24
06:50
WBC 7.6
Hgb 15.2
Hct 41.5
Plt Count 173
Sodium 141
Potassium 4.0
Chloride 104
Carbon Dioxide 20 L
BUN 21 H
Creatinine 1.2
Glucose 107 H
Calcium 9.3
Vital Signs:
Vital Signs
Temp Pulse Resp BP Pulse Ox
97.7 F 97 12 102/73 98
05/23/24 11:49 05/23/24 11:49 05/23/24 11:49 05/23/24 11:49 05/23/24 11:49
I&O
05/22/24 05/23/24 05/24/24
06:59 06:59 06:59
Output Total 250 / 250
Balance -250 / -250
Physical Exam
-
General: Well Developed and No Apparent Distress
HEENT: Normocephalic, Atraumatic and Moist Mucous Membranes
Respiratory: Clear to Auscultation
Cardiac: Regular Rhythm and S1/S2; Negative Murmur, Rub or Gallop
GI: Soft, Nontender, Nondistended and Normal Bowel Sounds; Negative Organomegaly
Rectal: Deferred by Provider
Musculoskeletal: No Clubbing, No Cyanosis and No Edema
Skin: Negative Rash
Neuro: Other (Left hemiparesis)
--- NOTE | 2024-05-23 14:42 | CM ---
CM placed call to patients son, Yesica, to complete IA and discuss PT recommendations. Per son, patient lives with a friend in a multiple story home. Patient does not use DME, has had outpatient PT/OT, and speech after stroke. Patient PCP Wenceslao Carranza,
pharmacy used [facility]. CM discussed PT/OT recommendations of acute rehab, patients son agreeable. TT to Hospitalist for PMR consult, TT to [facility] to review patient/ confirm accept patients insurance.
Patient seen in chair, CM relayed CM spoke with patients son, will be in to visit patient around 4:00 p.m. CM discussed PT recommendations of acute rehab. CM will continue to follow for all discharge planning needs.
Plan; Acute Rehab pending PMR consult
[2024-05-23] MEDS: KEPPRA 500 MG PO ×2 (14:53→20:22)
--- NOTE | 2024-05-23 15:10 | W.PN.UPDATE ---
Update Note
Progress Note Update
Called patient's PCP's office and they had a note in their chart that patient followed with [facility]. Called [facility] and they do not follow patient, but they were able to tell me that patient follows with ANNA Panchal at phone #
[phone]. Called ANNA Panchal and they said that patient has not been to their office since 2021. They are not receiving device transmissions either. They do not have a record of patient transferring to another practice. ANNA Panchal is going to
fax me his last office note from 2021. Continue to await a call back from his son from this morning.
[2024-05-23 17:02] LABS: Glucose - Point of Care 147 mg/dl (70-99)
[2024-05-23] MEDS: XARELTO 20 MG PO (17:17)
[2024-05-23] MEDS: ROXICODONE 5 MG PO (17:24)
[2024-05-23] MEDS: SEROQUEL 50 MG PO (21:03)
[2024-05-23] MEDS: LIPITOR 40 MG PO (21:04)
[2024-05-23 21:09] LABS: Glucose - Point of Care 156 mg/dl (70-99)
[2024-05-24] VITALS (7 sets, daily range): BP systolic 102–149; BP diastolic 64–84; PULSE 82; BMI 34.8
[2024-05-24 07:43] LABS: Glucose - Point of Care 106 mg/dl (70-99)
[2024-05-24] MEDS: NOVOLOG FLEXPEN-LOW RESISTANCE SC ×2 (07:48→16:58)
[2024-05-24] MEDS: PEPCID 20 MG PO ×2 (07:49→19:34)
[2024-05-24] MEDS: KEPPRA 500 MG PO ×2 (07:49→19:35)
[2024-05-24] MEDS: IMDUR (EXTENDED RELEASE) 60 MG PO (07:49)
[2024-05-24] MEDS: COREG 37.5 MG PO ×2 (07:49→19:40)
[2024-05-24] MEDS: ZYLOPRIM 200 MG PO (07:50)
[2024-05-24 07:51] LABS: Hematocrit 41.5 % (39.0-52.0); Hemoglobin 14.7 g/dL (13.0-18.0); Mean Corp Hgb Conc. 35.4 g/dL (33.0-37.0); Mean Corpuscular Hgb 29.2 pg (27.0-31.0); Mean Corpuscular Volume 82.5 fL (80.0-94.0); Platelet Count 172 10^3/uL (130-400); Red Blood Cell Count 5.03 10^6/uL (4.70-6.10); Red Cell Dist. Width 13.1 % (11.5-14.5); White Blood Cell Count 5.2 10^3/uL (4.8-10.8)
[2024-05-24 08:23] LABS: Blood Urea Nitrogen 24 mg/dl (9-20); Calcium 9.2 mg/dl (8.4-10.2); Carbon Dioxide 24 mmol/L (22-30); Chloride 102 mmol/L (98-107); Estimated Creatinine Clearance 94 ml/min; Glucose 96 mg/dl (70-99); Sodium 140 mmol/L (135-145); eGFR > 60.00
--- NOTE | 2024-05-24 08:41 | CON.MD ---
Consultation - Medical
-
Referring Provider:�Dr. Wili Kimbrough
Chief Complaint:�Unresponsive episode
History of present illness: 54-year-old male with PMH (as below) presented to [facility] on 05/22/2024 with concern for syncopal episode being found on the floor by his family with patient yelling out, concern for him looking like he was
being shocked initially. Defibrillator interrogated with no acute events. Patient denied feeling dizzy or faint before the episode. Echocardiogram with moderately reduced left ventricular systolic function with an EF 35-40%, global hypokinesis,
stage I diastolic dysfunction. EEG noting mildly abnormal EEG for age to mild diffuse bihemispheric slowing. Per friend patient has had some abnormal flrz-du-xynk jerking movements at times and was told by his neurologist he had a vertigo syndrome
response. Started on Keppra. CT of the head with no acute abnormalities, mild diffuse cortical atrophy with old 9 cm left MCA infarct. Notes pain in the low back in therapy.
Overall patient is feeling tired and generally weak, has some back pain which does not appear to be as bad. Has had some back pain and had a workup at [facility] with no major concerns per his friend.
�
Past Medical History:�Large left MCA territory ischemic CVA with residual right hemiparesis and expressive aphasia, coronary artery disease, chronic HFrEF, paroxysmal atrial fibrillation on Xarelto, essential hypertension, hyperlipidemia, type 2
diabetes, gout, GERD
Procedure History:�AICD
Family History:�None pertinent
�
Social History:�
Functional Level Premorbidly:�Significant aphasia, assisted for ADLs and dependent for homemaking status.At best was ambulating without device up and down steps and toileting/dressing himself.
Functional Level Currently:�Dependent for toileting and lower extremity self-care. Max assist bed mobility. Max assist bed mobility and transfers.
�
Tobacco:�Former alcohol abuse
Alcohol:�Denies�
Drug use:�Denies�
�
Lives with:�Friend
24-hour assistance available:�No
Number of floors:�2
# steps to enter:�2
# steps to second floor: Full flight
Potential First floor set up:�No
Driving:�No
Occupation:�Not working
�
�
Allergies:�
Allergy/AdvReac Type Severity Reaction Status Date / Time
No Allergy Information Allergy Unverified 05/22/24 18:08
Available
�
Review of Systems:�Limited by aphasia
Constitutional: (x) abNormal _generally weak
Eye: (x) Normal _
Ear/Nose/Throat: (x) Normal _
Respiratory: (x) Normal _
Cardiovascular: (x) Normal _
Gastrointestinal: (x) Normal _
Genitourinary: (x) Normal _
Musculoskeletal: (x) abNormal _mild back pain that is improving
Integumentary: (x) Normal _
Neurologic: (x) Normal _
Psychiatric: (x) Normal _
Endocrine: (x) Normal _
Hematologic/Lymphatic: (x) Normal _
Allergic/Immunologic: (x) Normal _
�
Medications:�
Active Current Visit Medication List
Category Date Time Status
Acetaminophen [Tylenol] Med 05/22/24 21:52 Active
650 mg PO Q4HPRN PRN
Allopurinol [Zyloprim] Med 05/23/24 08:00 Active
200 mg PO DAILY
Atorvastatin [Lipitor] Med 05/22/24 22:00 Active
40 mg PO HS
Carvedilol [Coreg] Med 05/23/24 08:00 Active
37.5 mg PO BID
Dextrose 50%-Water [Dextrose 50% Syringe] Med 05/22/24 21:52 Active
12.5 grams IV [id number] PRN
Famotidine [Pepcid] Med 05/22/24 23:00 Active
20 mg PO BID
Flush (0.9% Sodium Chloride) [Flush (Nss)] Med 05/22/24 22:00 Active
See Dose Instructions IV PER PROTOCOL
Glucagon [GlucaGen] Med 05/22/24 21:52 Active
1 mg IM PRN PRN
HYDROmorphone [Dilaudid] Med 05/23/24 10:59 Active
0.5 mg IV Q4HPRN PRN
ISOSORBIDE MONOnitrate ER [Imdur (Extended Release)] Med 05/23/24 08:00 Active
60 mg PO DAILY
Insulin Aspart Corrective Low [Novolog Flexpen-Low Med 05/23/24 07:30 Active
Resistance]
See Protocol SC AC
Levetiracetam [Keppra] Med 05/23/24 12:00 Active
500 mg PO BID
Oxycodone [Roxicodone] Med 05/23/24 10:59 Active
5 mg PO Q4HPRN PRN
Quetiapine Fumarate [Seroquel] Med 05/22/24 22:00 Active
50 mg PO HS
Rivaroxaban [Xarelto] Med 05/22/24 22:15 Active
20 mg PO DAILY@1700
�
Vitals:�
Temp Pulse Resp BP Pulse Ox
98.2 F 74 18 149/84 98
05/24/24 08:07 05/24/24 08:07 05/24/24 08:07 05/24/24 08:07 05/24/24 08:07
Height 6 ft 3 in
Actual Weight 126.325 kg
Body Mass Index (BMI) 34.8
�
Physical Exam:�
General Appearance/Observation: Well-developed, well-nourished male in no apparent distress.�
Pain/Comfort Assessment: Mild low back pain
Mood/Affect: Appropriate�
�
Integumentary/Operative Site:�No lesions noted during course of exam
�
Eyes: Conjunctiva/Lids: normal���� Pupils: pupils equal round and reactive to light and Accommodation�
Ears/Nose/Throat: oral mucosa moist,� throat clear.������������ Lips/Teeth/Gums: normal�
Neck: No muscle spasm or tenderness�
Cardiovascular: Heart: regular, no murmur�
Pulses: dorsalis pedis 2+ bilaterally�
Respiratory: Respiratory Effort/Chest Expansion: normal������� Auscultation: Clear to auscultation bilaterally�
Gastrointestinal: abdomen not tender, no distension, normal abdominal bowel sounds
Genitourinary: No Gallardo�
Rectal Exam: Deferred�
Extremities:�Edema: Slight edema right upper lower extremity. �Cyanosis: None�Trophic�changes: None
�
Neurology Exam:
Orientation: Alert, interactive, unable to test orientation with aphasia
Memory: Unable to test with aphasia
Repetition: Impaired
Comprehension: Impaired
Two step command: Impaired
Naming: Impaired
Cranial Nerves:
�� CNII:�Pupillary light reflex: Intact����Visual Field: Unable to assess with aphasia
�� CN III, IV, : Extraocular muscles: Intact�
�� CN V:�Facial Sensation�at�Forehead: Unable to accurately assess with aphasia
�� CN VII:�Facial movement: Left facial weakness
�� CN VIII:�Hearing: Responds to verbal stimuli without difficulty hearing
�� CN IX/X:�Speech & swallow: Receptive and expressive aphasia, dysarthria,�Position of Uvula: Deviated to right
�� CN XI:�Shoulder shrug: Decreased on right
�� CN XII:�Tongue protrusion: Deviated to right
Sensory:
�� Light touch: Unable to assess well with aphasia
�
Reflexes:
�� Biceps: 2+ bilaterally
�� Brachioradialis: 2+ bilaterally
�� Triceps: 2+ bilaterally
�� Patellar: 2+ bilaterally
�� Achilles: 2+ bilaterally
�� Babinski: Neutral on right, Down going left
�� Clonus: None
�� Mitchell: Negative bilaterally�
Cerebellar: Dysmetria/Ataxia: Unable to assess on right
Musculoskeletal: Motor: (Manual muscle scale 0-5)�
Muscle SA EF WE EE FF FA HF KE DF EHL PF
Right� 1 1 1 1 1+ 0 1 2 2 2
Left 5 5 5 5 5 5 5 5 5 5
�
Tone: Normal in all extremities�decreased right upper extremity flexion tone mild, not painful, can get near full range of motion except for mildly limited at shoulder.
Range of Motion: Passively within normal limits in all extremities�
�
Lab Results
Laboratory Data
05/24/24 06:18
05/24/24 06:18
APTT 35.7 Sec (23.4-35.0) H 05/22/24 18:04
Total Bilirubin 1.0 mg/dl (0.2-1.3) 05/22/24 18:04
AST 22 U/L (17-59) 05/22/24 18:04
ALT 17 U/L (0-50) 05/22/24 18:04
Alkaline Phosphatase 72 U/L (38-126) 05/22/24 18:04
Total Protein 7.5 g/dl (6.3-8.2) 05/22/24 18:04
Albumin 4.8 g/dl (3.5-5.0) 05/22/24 18:04
�
Diagnostic Results:�as per HPI�
�
Assessment
54-year-old [facility] (Large left MCA territory ischemic CVA with residual right hemiparesis and expressive aphasia, coronary artery disease, chronic HFrEF, paroxysmal atrial fibrillation on Xarelto, essential hypertension, hyperlipidemia, type 2
diabetes, gout, GERD) with 05/22/2024 syncopal episode of unclear etiology with worsening of his ADLs and ambulatory dysfunction.
�
Plan�
PM&R�PT/OT to increase independence with ADLs, improve balance, coordination, endurance, strength, mobility, community reintegration, decreased burden of care on others and family education.�
�
Questionable syncopal episode: No cardiac cause noted. Started on Keppra for possible seizure activity.
CVA history: Secondary prophylaxis with Xarelto, statin, and blood pressure control. Continue to monitor neurologic status.�
Right dominant hemiparesis: High risk for falls and sliding out of chair/bed. Safety reinforced.�
- Avoid using affected arm to help lift or pull patient as this will cause trauma to the shoulder.
Dysarthria: speech evaluation�
Aphasia: speech �
HTN: Carvedilol, monitor closely�
HLD: Statin�
Coronary artery disease�: Xarelto, statin, beta-justyn�
Atrial fibrillation:�Xarelto anticoagulation and rate control with Coreg.�������������������������������������������
CHF: EF 35�40%, beta justyn, monitor fluid status�
Gout: Allopurinol
Psych: Psychology consult.� Monitor mood, adjust medications as needed.�
Skin: monitor for pressure sores/rashes/lesions.�
Low back pain: acetaminophen, oxycodone, or Dilaudid as needed.� Had a workup at [facility] including ultrasounds and x-rays with no significant concerns per his manager occupational.
Bowel: Colace and Senna, PRN bisacodyl.�
Bladder: Time void, PVRs, PRN straight cath.�
GERD: Pepcid
DVT Prophylaxis: Mechanical on Xarelto.�
Pulmonary: Incentive spirometry�
Obesity: Continue to skilled nursing facility counselor patient about diet adjustments to control obesity. Body habitus and increased force to move body and extremities causes further difficulty with functional tasks.�
Safety: Continue to reinforce assistance with all transfers.�
Code Status:� Full code
Dispo�(date/plan/equipment needs): Home with family care.� Social history reviewed.�
�Functional and Medical Goals:�Modified Independent with ADL�s, ambulation, transfers�
Discharge Destination:�jail facility, after discussion with patient and his manager occupational/friend
�
Summary of recommendations:
-�Discharge Destination:�jail facility
�
Thank you for allowing me to care for your patient. Please contact me with any questions or concerns.
[2024-05-24] MEDS: DILAUDID 0.5 MG IV ×3 (10:31→21:22)
--- NOTE | 2024-05-24 10:50 | W.PN.CARDCBS ---
Addendum entered and electronically signed by Federico Bahena MD 05/24/24 17:53:
I saw and examined the patient.
The Attendant Honor Bar's note was reviewed and I agree with the note.
Comment: Briefly, 54-year-old man past medical history of CVA complicated by expressive aphasia, cardiomyopathy status post ICD who presents following an episode of unresponsiveness
There was initially concern for arrhythmia as a cause of his symptoms however ICD interrogation here was unrevealing
Tele reviewed, no arrhythmia or significant pauses seen
Transthoracic echocardiogram with moderately reduced LV function however this may be his baseline as we have no prior for comparison
Low-level troponin elevation noted, peaked at 0.043, no need to repeat at this time
Would resume home cardiac meds
Appreciate neurology input regarding possible seizure
Stable cardiac status, we will sign off, patient should follow-up with his primary pre assembly wirer at [facility]
Discussed with patient's significant other who was at bedside
Original Note:
Today's Communication / Plan
-
Lasix 20 mg PO daily resumed
Would eventually resume the rest of his CM meds
He will continue to follow with his primary pre assembly wirer at [facility], Dr. Tan
Impression / Plan
-
PCP: Dr. Wenceslao Carranza
Cardiology: Dr. Jose Juan Tan at [facility] at [facility]
Impression:
Loss of consciousness, suspect seizure
Elevated Troponin
Anion gap metabolic acidosis
[employer] ICD
NICM EF 35% by echo 05/24/24
Chronic HFrEF
Nonobstructive CAD by cath 2020
Paroxysmal Afib
Chronic Xarelto OAC
h/o CVA with expressive aphasia 10/2023
Hyperglycemia
Echo 2020: [facility] [employer] study, EF 29%
Echo 05/23/24: EF 35-40%, mod conc LVH, global hypokinesis with regional variability; septum and apex appears more severely hypokinetic. Stage I diastolic dysfunction, mild aortic regurgitation, mild TR
Plan:
-Talked with patient's friend and primary caregiver at bedside 05/24/24, she reports that patient is no longer following with Dr. English at [facility] and is now following with Dr. Jose Juan Tan at [facility] at [facility].
-Echo reviewed with caregiver and paper copy provided for continuity of care among healthcare providers at OSH
-Patient was started on Lasix months ago when his [employer] device indicated volume overload, but patient then developed gout and Lasix dose decreased. Patient is now taking Lasix 20 mg PO daily. pro-BNP only 156 in the ER. Will resume his
usual dose of Lasix 20 mg PO daily now.
-Outpatient doses of Farxiga 10 mg daily, spironolactone 50 mg daily and Entresto 24-26 mg BID are on hold, would eventually resume given his h/o NICM. EF previously as low as 29%, but improved a bit to 35-40% by echo 05/23/24.
-Outpatient doses of Coreg 37.5 mg BID, Imdur ER 60 mg daily continued.
-Outpatient dose of Xarelto 20 mg daily has been continued.
-Troponin peaked at 0.043 and will be managed as a nonischemic myocardial injury Troponin elevation due to seizure on admission.
-ICD check in the ER was unremarkable and no evidence of shocks or arrhythmia.
-Patient suspected to have had a seizure, there is no h/o seizure disorder.
HPI: Patient came to [facility] yesterday after being found unresponsive and grabbing at his chest, cardiology is consulted for the LOC and elevated Troponin. Patient has a h/o CVA with expressive aphasia and he cannot answer questions. Called his son,
Mared, and left a message asking for a call back. Based on available records, it appears that patient called out and when family ran to check on him they found him on the floor and grabbing his chest. Family called 911 and in [facility] his
[employer] ICD was checked and no evidence of arrhythmia or shocks. His initial Troponin was elevated at 0.036 and then trended up to 0.043, but now trending down. No ischemic changes on ECG. His outpatient pre assembly wirer is unknown. His med
list includes CM meds and Xarelto so presumably he has a h/o CM and atrial arrhythmia.
Progress Note - Grain Blender
Subjective
Date of Service: May 24, 2024
No chest pain
Objective
Labs:
05/24/24 06:18
05/24/24 06:18
Labs
Hgb 14.7 g/dL (13.0-18.0) 05/24/24 06:18
Hct 41.5 % (39.0-52.0) 05/24/24 06:18
Plt Count 172 10^3/uL (130-400) 05/24/24 06:18
APTT 35.7 Sec (23.4-35.0) H 05/22/24 18:04
Sodium 140 mmol/L (135-145) 05/24/24 06:18
Potassium 4.0 mmol/L (3.5-5.1) 05/24/24 06:18
BUN 24 mg/dl (9-20) H 05/24/24 06:18
Creatinine 1.3 mg/dL (0.7-1.3) 05/24/24 06:18
Glucose 96 mg/dl (70-99) 05/24/24 06:18
Troponins
05/22/24 05/22/24 05/22/24
18:04 18:23 23:54
Troponin I 0.036 H* Cancelled 0.043 H*
05/23/24 05/23/24
06:50 11:36
Troponin I 0.031 D 0.024
Vital Signs and I&O:
Vital Signs
Temp Pulse Resp BP Pulse Ox
98.2 F 74 18 149/84 98
05/24/24 08:07 05/24/24 08:07 05/24/24 08:07 05/24/24 08:07 05/24/24 08:07
Vital Signs
Temp Pulse Resp BP Pulse Ox
98.2 F 74 18 149/84 98
05/24/24 08:07 05/24/24 08:07 05/24/24 08:07 05/24/24 08:07 05/24/24 08:07
Intake & Output
05/22/24 05/23/24 05/24/24 05/25/24
06:59 06:59 06:59 06:59
Intake Total 360 / 360
Output Total 250 / 250 800 / 800
Balance -250 / -250 -440 / -440
Physical Exam
Physical Exam
GEN: NAD. Awake, alert and oriented to person, place and situation
HEENT: EOMI, MMM
LUNGS: No audible wheeze
CV: SR on tele
ABD: ND
EXT: No edema B/L
NEURO: Gross non-focal
SKIN: No rash
[2024-05-24 11:59] LABS: Glucose - Point of Care 158 mg/dl (70-99)
[2024-05-24] MEDS: NOVOLOG FLEXPEN-LOW RESISTANCE 1 UNITS SC (12:03)
--- NOTE | 2024-05-24 12:59 | W.PN.NEURO.1 ---
Addendum entered and electronically signed by Rashad Middleton MD 05/24/24 15:21:
Correction: Please note the left frontal infarct with right spastic hemiplegia
Original Note:
Documented by User: Xochitl Bojorquez NP 05/24/24 14:16
Today's Communication / Plan
-
.
Neuro Assessment/Plan
Assessment
This is a 54-year-old male with a PMH of large L MCA territory ischemic stroke in 10/2023 with residual R hemiparesis and severe aphasia, paroxysmal Afib (Xarelto), HFrEF, HTN, HLD, NIDDM who presented to on 05/22/24 with report of loss of
consciousness and whole body shaking.
1. CT Head 05/22/24: No acute abnormalities. Mild diffuse cortical atrophy with old 9 cm left middle cerebral artery infarct.
2. EEG 05/23/24: Mildly abnormal EEG for age due to mild diffuse bihemispheric slowing
I. This event was likely a generalized seizure without status epilepticus given gaze deviation, body stiffening and shaking, tongue laceration, and elevated CK level. This patient has a lower threshold for seizure given his old large ischemic
stroke and recent lack of oral intake.
Plan
-Continue Keppra 500mg PO BID.
-Seizure precautions.
-Infection/metabolic workup per primary team.
-No driving, patient does not drive at baseline.
-Continue home Xarelto.
-Follow-up with his outpatient Neurologist.
Subjective/Objective
Subjective Data
Date of Service: May 24, 2024
Patient uncooperative overnight, trying to get out of bed, agitated/yelling when not permitted. Patient and his account solutions analyst at bedside report he is at his normal baseline today. He endorses left hip pain. Challenging to complete ROS due to aphasia.
Objective Data
Vital Signs
Temp Pulse Resp BP Pulse Ox
98.0 F 82 18 102/64 96
05/24/24 11:07 05/24/24 11:07 05/24/24 11:07 05/24/24 11:07 05/24/24 11:07
Lab Results
05/24/24 06:18
05/24/24 06:18
APTT 35.7 Sec (23.4-35.0) H 05/22/24 18:04
Sodium 140 mmol/L (135-145) 05/24/24 06:18
Potassium 4.0 mmol/L (3.5-5.1) 05/24/24 06:18
BUN 24 mg/dl (9-20) H 05/24/24 06:18
Glucose 96 mg/dl (70-99) 05/24/24 06:18
Calcium 9.2 mg/dl (8.4-10.2) 05/24/24 06:18
Xhm-E-Rdxvvhxcabi Pept 156 pg/ml 05/22/24 18:04
Ur Buprenorphine Negative (Negative) 05/22/24 21:27
Patient Allergies
No Allergy Information Available Allergy (Unverified 05/22/24 18:08)
Review of Systems
-
Unable to obtain full review of systems at this time due to: Aphasia
Physical Exam
-
General: No Apparent Distress
Eyes: No Ptosis and PERRLA
HEENT: Normocephalic and Atraumatic
Neck: Full Range of Motion
Respiratory: No Dyspnea
GI: Non-distended
Extremities: No Clubbing, No Cyanosis and No Edema
Psych: Unable to Assess
Extended Neurological Exam
Mood & Affect: Unable to Assess
Attention Span & Concentration: Awake, Alert and Interactive
Memory: Reduced (limited due to aphasia)
Tremor: Hand Tremor Absent and Head Tremor Absent
Involuntary Movement: None
Speech: Expressive Aphasia, Receptive Aphasia, Moderately Reduced Output and Dysarthric
Cranial Nerve II: Left Eye: Pupillary Reactivity Unremarkable, Pupillary Size Unremarkable and Unable to Assess Visual Stveens
Cranial Nerve II: Right Eye: Pupillary Reactivity Unremarkable, Pupillary Size Unremarkable and Unable to Assess Visual Stevens
Cranial Nerves III, IV, : Extraocular Movement: Extraocular Movement Full in all Directions
Cranial Nerve VII: Facial Symmetry: Reduced (right facial drooping)
Cranial Nerve VIII: Hearing: Unremarkable Hearing to Normal Conversational Volume
Cranial Nerves IX, X: Palate Movement: Palate Elevation Symmetric
Cranial Nerve XII: Tongue Protusion: Midline
Muscle Strength, Overall: Reduced on Right (RUE 1/5, RLE 3-4/5)
Pronator Drift: Drift in Right Lower Extremity
Touch Sensation: Unable to Assess
Coordination: Unable to Assess
Babinski Sign: Absent Bilaterally
Modified Rubin Score (MRS)
-
Modified Rubin Scale (mRS): Moderate disability. Requires some help, able to walk unassisted.
Score: 3
Data Reviewed
-
CT Head: Report Reviewed and Image Reviewed
EEG: Report Reviewed
Reviewed with: Physician, Patient and Family
Medications
-
Active Medications
Generic Name Dose Route Start Last Admin
Trade Name Freq PRN Reason Stop Dose Admin
Acetaminophen 650 mg 05/22/24 21:52 05/23/24 21:04
Acetaminophen 325 Mg Tablet PO 06/19/24 21:51 650 mg
Q4HPRN PRN Administration
mild pain/ fever>100.5F
Allopurinol 200 mg 05/23/24 08:00 05/24/24 07:50
Allopurinol 100 Mg Tablet PO 06/20/24 07:59 200 mg
DAILY THEO Administration
Atorvastatin Calcium 40 mg 05/22/24 22:00 05/23/24 21:04
Atorvastatin (Lipitor) 40 Mg Tablet PO 06/19/24 21:59 40 mg
HS THEO Administration
Carvedilol 37.5 mg 05/23/24 08:00 05/24/24 07:49
Carvedilol 25 Mg Tablet PO 06/20/24 07:59 37.5 mg
BID THEO Administration
Dextrose 12.5 grams 05/22/24 21:52
Dextrose 50% (0.5 Grams/Ml) 50 Ml Syringe IV 06/19/24 21:51
[id number] PRN
hypoglycemia
Protocol
Famotidine 20 mg 05/22/24 23:00 05/24/24 07:49
Famotidine 20 Mg Tablet PO 06/19/24 22:59 20 mg
BID THEO Administration
Furosemide 20 mg 05/24/24 14:00 05/24/24 13:51
Furosemide 20 Mg Tablet PO 06/21/24 13:59 Not Given
DAILY THEO
Glucagon 1 mg 05/22/24 21:52
Glucagon 1 Mg Vial IM 06/19/24 21:51
PRN PRN
hypoglycemia
Protocol
Hydromorphone HCl 0.5 mg 05/23/24 10:59 05/24/24 10:31
Hydromorphone 0.5 Mg/0.5 Ml Syringe IV 06/06/24 10:58 0.5 mg
Q4HPRN PRN Administration
severe pain
Insulin Aspart 0 units 05/23/24 07:30 05/24/24 12:03
Insulin Aspart Low Resistance 300 Units/3 Ml Pen.Injctr SC 06/20/24 07:29 1 units
AC THEO Administration
Protocol
Isosorbide Mononitrate 60 mg 05/23/24 08:00 05/24/24 07:49
Isosorbide Mononitrate 60 Mg Extended Release Tablet PO 06/20/24 07:59 60 mg
DAILY THEO Administration
Levetiracetam 500 mg 05/23/24 12:00 05/24/24 07:49
Levetiracetam Solution (500 Mg/5 Ml) Cup PO 06/20/24 11:59 500 mg
BID THEO Administration
Oxycodone HCl 5 mg 05/23/24 10:59 05/23/24 17:24
Oxycodone 5 Mg Regular Release Tablet PO 06/06/24 10:58 5 mg
Q4HPRN PRN Administration
moderate pain
Quetiapine Fumarate 50 mg 05/22/24 22:00 05/23/24 21:03
Quetiapine 25 Mg Tablet PO 06/19/24 21:59 50 mg
HS THEO Administration
Rivaroxaban 20 mg 05/22/24 22:15 05/23/24 17:17
Rivaroxaban 20 Mg Tablet PO 06/19/24 22:14 20 mg
DAILY@1700 THEO Administration
Sodium Chloride 0 flush 05/22/24 22:00
Sodium Chloride 0.9% (Flush) Syringe IV 06/19/24 21:59
PER PROTOCOL THEO
Home Medications
�Medication �Instructions �Recorded
allopurinol 200 mg tablet 200 mg PO DAILY 05/22/24
atorvastatin 40 mg tablet 40 mg PO HS 05/22/24
carvedilol 25 mg tablet 37.5 mg PO BID 05/22/24
colchicine 0.6 mg tablet 0.6 mg PO BIDPRN PRN gout 05/22/24
dapagliflozin propanediol 10 mg 10 mg PO DAILY 05/22/24
tablet (Farxiga)
famotidine 20 mg tablet 20 mg PO BID 05/22/24
furosemide 20 mg tablet 20 mg PO DAILY 05/22/24
isosorbide mononitrate 60 mg 60 mg PO DAILY 05/22/24
tablet,extended release 24 hr
quetiapine 50 mg tablet 50 mg PO HS 05/22/24
rivaroxaban 20 mg tablet (Xarelto) 20 mg PO DAILY@1700 05/22/24
sacubitril 24 mg-valsartan 26 mg 1 tab PO BID 05/22/24
tablet (Entresto)
spironolactone 50 mg tablet 50 mg PO DAILY 05/22/24

Documented by User: Rashad Middleton MD 05/24/24 15:12
Today's Communication / Plan
-
Neurology Attending note:
54-year-old male with history of uncontrolled hypertension who suffered a large right frontal infarct who had been improving initially and declined abruptly on May 23. He was started on antiepileptic medications Keppra 500 mg twice daily.
This morning his cognition has improved and is able to interact. He is being and is able to move the right arm and right leg freely severe weakness on the left side consistent with right frontal lobe infarction.
CT of the head shows extension of the right frontal lobe infarction to neighboring subcortical structures
PLAN: Continue Xarelto
Continue Keppra 500 mg BID
Speech therapy
Modified [place] Score (MRS)
-
Score: 3
--- NOTE | 2024-05-24 13:36 | CM ---
Addendum entered by Lisa Ortiz 05/24/24 16:15:
Per PM&R recommendations patient is appropriate for skilled placement referral sent to [facility] however per admissions they do not have a contract with patient's insurance.
Original Note:
Chart reviewed and showcase maker spoke with patient's friend Nancy [phone] and she stated that patient will be staying with his son, Mared in [place] after rehab placement. Recommendation is for acute rehab however patient may not have acute
rehab diagnosis, referral sent to PM&R, showcase maker also reviewed skilled options as back up plan, patient was at [facility] in past however per Abdullahi [phone] in admissions patient's insurance [facility] does
not have a contract with [facility].
Plan; Await PM&R evaluation and recommendation, follow up with [facility].
[2024-05-24] MEDS: LASIX PO (13:51)
[2024-05-24 16:36] LABS: Glucose - Point of Care 112 mg/dl (70-99)
[2024-05-24] MEDS: XARELTO 20 MG PO (17:04)
--- NOTE | 2024-05-24 17:06 | W.PN.HOSP.TC ---
Today's Communication/Plan
-
Continue Keppra.
Monitor for recurrent seizure.
Reinstate cardiovascular regimen including diuretics and monitor for hypotension.
Follow BMP.
Discharge planing pending retirement facility placement
Assessment / Plan
Assessment / Plan
Impression:
Witnessed tonicoclonic seizure at home.
Mild rhabdomyolysis secondary to above
Non-IN troponin elevation likely function of rhabdo.
Acute kidney injury
Elevated anion gap metabolic acidosis.
Conditions prior to admission:
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
Likely paroxysmal A-fib.
Cardiomyopathy
Status post AICD.
Chronic anticoagulation with Xarelto
Diabetes
Gout
Obesity with BMI of 34
Plan
Witnessed tonic-clonic seizure at home (history was taken from patient's friend at the bedside)
CT scan of the head with no acute abnormalities. Mild diffuse cortical atrophy with old 9 cm left middle cerebral artery infarct.
Neurologic status close to baseline.
EEG with no epileptic activity.
Discussed with neurology
Initiated on Keppra 500 mg twice daily
Orthostatic vitals
Cardiovascular
Has non-IN troponin elevation likely function of mild rhabdomyolysis postseizure.
Cardiomyopathy
Echocardiogram 05/23/2024: LVEF 35-40% with global hypokinesis
Volume status compensated
Noted mildly elevated pro CHF BNP at 1000.
AICD interrogated with no events
Preadmission cardiovascular regimen including Coreg/Entresto/Imdur/Lasix/spironolactone.
BARBY baseline creatinine improves 1.4�1.2
Mild elevated anion gap metabolic acidosis likely in the settings of tonic-clonic activity.
Noted with mild elevation of serum acetone while on Farxiga, although with low clinical suspicion for SGLT2 related ketoacidosis.
Renal function improved
And stayed preadmission cardiovascular regimen as above including diuretics
Follow creatinine.
Severe diffuse pain
Exam with no noticeable musculoskeletal abnormalities.
Reported no relief with Tylenol. Will start oxycodone/IV hydromorphone with attempt to wean off over the next 24 hours. Monitor for oversedation.
Full code
DVT prophylaxis Xarelto
Anticipated Discharge: 24 - 48 hours
Subjective/Interval History
-
Date of Service: May 24, 2024
Objective Data
-
Labs:
Laboratory Results
05/24/24
06:18
WBC 5.2
Hgb 14.7
Hct 41.5
Plt Count 172
Sodium 140
Potassium 4.0
Chloride 102
Carbon Dioxide 24
BUN 24 H
Creatinine 1.3
Glucose 96
Calcium 9.2
Vital Signs:
Vital Signs
Temp Pulse Resp BP Pulse Ox
97.5 F 81 16 109/70 96
05/24/24 15:37 05/24/24 15:37 05/24/24 15:37 05/24/24 15:37 05/24/24 15:37
I&O
05/23/24 05/24/24 05/25/24
06:59 06:59 06:59
Intake Total 360 / 360
Output Total 250 / 250 800 / 800
Balance -250 / -250 -440 / -440
Physical Exam
-
General: Well Developed and No Apparent Distress
HEENT: Normocephalic, Atraumatic and Moist Mucous Membranes
Respiratory: Clear to Auscultation
Cardiac: Regular Rhythm and S1/S2; Negative Murmur, Rub or Gallop
GI: Soft, Nontender, Nondistended and Normal Bowel Sounds; Negative Organomegaly
Rectal: Deferred by Provider
Musculoskeletal: No Clubbing, No Cyanosis and No Edema
Skin: Negative Rash
Neuro: Other (Left hemiparesis)
[2024-05-24] MEDS: ALDACTONE 50 MG PO (17:57)
[2024-05-24] MEDS: FARXIGA 10 MG PO (17:58)
[2024-05-24] MEDS: ENTRESTO 24 MG/26 MG 1 TAB PO (19:39)
[2024-05-24] MEDS: LIPITOR 40 MG PO (21:16)
[2024-05-24] MEDS: SEROQUEL 50 MG PO (21:20)
[2024-05-24 21:32] LABS: Glucose - Point of Care 141 mg/dl (70-99)
[2024-05-25] VITALS (7 sets, daily range): BP systolic 94–123; BP diastolic 62–80; BMI 35.0
[2024-05-25 07:07] LABS: Glucose - Point of Care 109 mg/dl (70-99)
[2024-05-25] MEDS: NOVOLOG FLEXPEN-LOW RESISTANCE SC ×3 (08:28→16:14)
[2024-05-25] MEDS: COREG 37.5 MG PO ×2 (08:29→20:56)
[2024-05-25] MEDS: FARXIGA 10 MG PO (08:29)
[2024-05-25] MEDS: ENTRESTO 24 MG/26 MG 1 TAB PO ×2 (08:30→20:58)
[2024-05-25] MEDS: LASIX 20 MG PO (08:30)
[2024-05-25] MEDS: KEPPRA 500 MG PO ×2 (08:30→20:56)
[2024-05-25] MEDS: IMDUR (EXTENDED RELEASE) 60 MG PO (08:30)
[2024-05-25] MEDS: PEPCID 20 MG PO ×2 (08:30→20:58)
[2024-05-25] MEDS: ZYLOPRIM 200 MG PO (08:30)
[2024-05-25] MEDS: ALDACTONE 50 MG PO (08:31)
[2024-05-25 08:33] LABS: Calcium 9.5 mg/dl (8.4-10.2); Carbon Dioxide 20 mmol/L (22-30); Chloride 103 mmol/L (98-107); Sodium 138 mmol/L (135-145)
[2024-05-25 09:04] LABS: Blood Urea Nitrogen 24 mg/dl (9-20); Estimated Creatinine Clearance 102 ml/min; Glucose 108 mg/dl (70-99); Potassium 3.9 mmol/L (3.5-5.1); eGFR > 60.00
--- NOTE | 2024-05-25 11:45 | CM ---
Addendum entered by Pamela Chandler 05/25/24 15:28:
Patient seen with son, discussed awaiting accepting SNF facility. Son denies questions at this time. CM will continue to update family.
Original Note:
CM reviewed chart, [facility] unable to accept patient as they do not accept patients insurance. Patient currently on 1:1. CM spoke with patients friend, Nancy, discussed [facility] unable to accept. Nancy reports she will call patients insurance
to see what SNF accept insurance. CM discussed [facility] unable to accept patient, recommending SNF. Nancy inquiring about private rooms at facilities for patient, reached out to liaison at [facility] to see if they accept insurance. Nancy
reports she lives in [place] and son lives in [facility], looking for facility close. CM will await to hear from facility, patient will require auth once SNF found. Patient will need to be off 1:1.
Plan; SNF pending accepting facility, will need insurance auth, will need to be off 1:1.
[2024-05-25 12:10] LABS: Glucose - Point of Care 123 mg/dl (70-99)
--- NOTE | 2024-05-25 15:36 | W.PN.HOSP.TC ---
Today's Communication/Plan
-
Mental l status improved with no behavioral disturbances over the last 24 to 48 hours.
No further epileptic activity while initiated on Keppra.
Stable hemodynamics and compensated volume status on current cardiovascular regimen.
Medically optimized for discharge to longterm facility pending bed availability.
Assessment / Plan
Assessment / Plan
Impression:
Witnessed tonicoclonic seizure at home.
Mild rhabdomyolysis secondary to above
Non-MA troponin elevation likely function of rhabdo.
Acute kidney injury
Elevated anion gap metabolic acidosis.
Conditions prior to admission:
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
Likely paroxysmal A-fib.
Cardiomyopathy
Status post AICD.
Chronic anticoagulation with Xarelto
Diabetes
Gout
Obesity with BMI of 34
Plan
Witnessed tonic-clonic seizure at home (history was taken from patient's friend at the bedside)
CT scan of the head with no acute abnormalities. Mild diffuse cortical atrophy with old 9 cm left middle cerebral artery infarct.
Neurologic status close to baseline.
EEG with no epileptic activity.
Discussed with neurology
Initiated on Keppra 500 mg twice daily
Orthostatic vitals
Cardiovascular
Has non-MA troponin elevation likely function of mild rhabdomyolysis postseizure.
Cardiomyopathy
Echocardiogram 05/23/2024: LVEF 35-40% with global hypokinesis
Volume status compensated
Noted mildly elevated pro CHF BNP at 1000.
AICD interrogated with no events
Preadmission cardiovascular regimen including Coreg/Entresto/Imdur/Lasix/spironolactone.
BARBY baseline creatinine improves 1.4�1.2
Mild elevated anion gap metabolic acidosis likely in the settings of tonic-clonic activity.
Noted with mild elevation of serum acetone while on Farxiga, although with low clinical suspicion for SGLT2 related ketoacidosis.
Renal function improved
And stayed preadmission cardiovascular regimen as above including diuretics
Follow creatinine.
Severe diffuse pain
Exam with no noticeable musculoskeletal abnormalities.
Reported no relief with Tylenol. Will start oxycodone/IV hydromorphone with attempt to wean off over the next 24 hours. Monitor for oversedation.
Full code
DVT prophylaxis Xarelto
Anticipated Discharge: 24 - 48 hours
Subjective/Interval History
-
Date of Service: May 25, 2024
Objective Data
-
Labs:
Laboratory Results
05/25/24
07:16
Sodium 138
Potassium 3.9
Chloride 103
Carbon Dioxide 20 L
BUN 24 H
Creatinine 1.2
Glucose 108 H
Calcium 9.5
Vital Signs:
Vital Signs
Temp Pulse Resp BP Pulse Ox
97.8 F 87 18 94/62 100
05/25/24 11:21 05/25/24 11:21 05/25/24 11:21 05/25/24 11:21 05/25/24 11:21
I&O
05/24/24 05/25/24 05/26/24
06:59 06:59 06:59
Intake Total 360 / 360
Output Total 800 / 800 200 / 200
Balance -440 / -440 -200 / -200
Physical Exam
-
General: Well Developed and No Apparent Distress
HEENT: Normocephalic, Atraumatic and Moist Mucous Membranes
Respiratory: Clear to Auscultation
Cardiac: Regular Rhythm and S1/S2; Negative Murmur, Rub or Gallop
GI: Soft, Nontender, Nondistended and Normal Bowel Sounds; Negative Organomegaly
Rectal: Deferred by Provider
Musculoskeletal: No Clubbing, No Cyanosis and No Edema
Skin: Negative Rash
Neuro: Other (Left hemiparesis)
[2024-05-25 16:11] LABS: Glucose - Point of Care 136 mg/dl (70-99)
[2024-05-25] MEDS: XARELTO 20 MG PO (16:14)
[2024-05-25] MEDS: LIPITOR 40 MG PO (21:00)
[2024-05-25] MEDS: SEROQUEL 50 MG PO (21:00)
[2024-05-25] MEDS: DILAUDID 0.5 MG IV (21:34)
[2024-05-26 06:10] LABS: Glucose - Point of Care 102 mg/dl (70-99)
[2024-05-26 07:15] VITALS: BP 117/71
[2024-05-26 07:51] LABS: Glucose - Point of Care 110 mg/dl (70-99)
[2024-05-26 08:00] VITALS: BMI 34.9
[2024-05-26] MEDS: NOVOLOG FLEXPEN-LOW RESISTANCE SC ×2 (08:40→16:53)
[2024-05-26] MEDS: KEPPRA 500 MG PO ×2 (08:42→21:20)
[2024-05-26] MEDS: LASIX 20 MG PO (08:42)
[2024-05-26] MEDS: ALDACTONE 50 MG PO (08:43)
[2024-05-26] MEDS: ZYLOPRIM 200 MG PO (08:43)
[2024-05-26] MEDS: ENTRESTO 24 MG/26 MG 1 TAB PO ×2 (08:43→21:20)
[2024-05-26] MEDS: COREG 37.5 MG PO ×2 (08:43→21:18)
[2024-05-26] MEDS: PEPCID 20 MG PO ×2 (08:43→21:20)
[2024-05-26] MEDS: FARXIGA 10 MG PO (08:43)
[2024-05-26] MEDS: IMDUR (EXTENDED RELEASE) 60 MG PO (08:43)
[2024-05-26 11:36] LABS: Glucose - Point of Care 150 mg/dl (70-99)
[2024-05-26] MEDS: NOVOLOG FLEXPEN-LOW RESISTANCE 1 UNITS SC (12:43)
--- NOTE | 2024-05-26 12:55 | W.PN.HOSP.TC ---
Today's Communication/Plan
-
Wean as needed opiates
Continue with Keppra regimen
Discharge planning
Assessment / Plan
Assessment / Plan
#Witnessed tonic-clonic seizure at home
-CT scan of the head showed no acute findings, mild cortical atrophy and old 9 cm left MCA infarct
-EEG here did not show any signs of epileptic activity; started on Keppra regimen empirically by neurology
-Neurologic status has been close to baseline, remains so today
-Continue with Keppra 500 mg twice daily
-Will need close outpatient follow-up with neurology
#Secondary rhabdomyolysis to seizure
#Acute kidney injury
#troponin elevation in context of rhabdomyolysis
#HAGMA
-Suspect prerenal BARBY, less likely intrinsic from rhabdomyolysis as it improved quickly
-Secondary anion gap metabolic acidosis from seizure and renal insufficiency
-Troponin of muscle origin; no signs of ACS while here
-Resolved with IV fluids, will continue to monitor BMP here
#Severe diffuse pain
-Examination was without any noticeable musculoskeletal abnormalities
-Unclear etiology, was started on opioid analgesics empirically
-Will taper as needed Dilaudid and oxycodone to every 8 hours
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
-Likely cardioembolic in nature, large left MCA infarct on CT
-Complicated by hemiparesis, significant expressive aphasia
-No signs of new focal deficits here
# Paroxysmal AF
-Nonvalvular, elevated [id number], (+) CVA history
-Home medications include Xarelto, carvedilol
-No known history of EP interventions
-Heart rate currently WNL
#HFrEF/cardiomyopathy
#Status post AICD
-TTE on 05/23 showed LVEF 35 to 40% with global hypokinesis
-Unclear etiology, no known history of coronary disease, may be NICM
-GDMT: Carvedilol, ARNI, MRA, SGLT2 inhibitor; Lasix for loop diuresis
-Also on Imdur for antihypertensive therapy, afterload reduction
-Seems euvolemic as of this
#Gout
-Home medications include allopurinol, colchicine
#Obesity
-BMI 34
DVT prophylaxis: Xarelto
Diet: Sodium restricted
CODE STATUS: Full code
Anticipated Discharge: 24 - 48 hours
Subjective/Interval History
-
Date of Service: May 26, 2024
Seen and examined at bedside. No acute events overnight. AFVSS this morning.
History limited by expressive aphasia at baseline from previous CVA
Objective Data
-
Vital Signs:
Vital Signs
Temp Pulse Resp BP Pulse Ox
97.9 F 81 18 117/71 96
05/26/24 07:15 05/26/24 08:43 05/26/24 07:15 05/26/24 08:43 05/26/24 07:15
I&O
05/25/24 05/26/24 05/27/24
06:59 06:59 06:59
Intake Total 960 / 960
Output Total 200 / 200 575 / 575
Balance -200 / -200 385 / 385
Review of Systems
-
Unable to obtain full review of systems at this time due to: Other (Severe expressive aphasia (baseline))
Physical Exam
-
General: Well Nourished, No Apparent Distress and Comfortable
HEENT: Normocephalic, Atraumatic and Moist Mucous Membranes
Respiratory: Clear to Auscultation and Non Labored Respirations; Negative Wheezes, Rales or Rhonchi
Cardiac: Regular Rhythm and S1/S2; Negative Murmur, Rub, JVD or Gallop
GI: Soft, Nontender, Nondistended and Normal Bowel Sounds
Musculoskeletal: No Clubbing, No Cyanosis and No Edema
Skin: Warm, Dry and Rash
Neuro: AO x 3, Nonfocal/Grossly Intact (No new deficits, chronic deficits stable), Central Nerve's Intact and Other (Left-sided hemiparesis, severe expressive aphasia)
[2024-05-26] MEDS: ROXICODONE 5 MG PO ×2 (13:17→21:23)
[2024-05-26 15:34] VITALS: BP 117/68
[2024-05-26 16:39] LABS: Glucose - Point of Care 120 mg/dl (70-99)
[2024-05-26] MEDS: XARELTO 20 MG PO (17:13)
[2024-05-26] MEDS: LIPITOR 40 MG PO (21:20)
[2024-05-26] MEDS: SEROQUEL 50 MG PO (21:22)
[2024-05-26 21:53] LABS: Glucose - Point of Care 148 mg/dl (70-99)
[2024-05-26 23:20] VITALS: BP 117/73
[2024-05-27 06:00] VITALS: BMI 34.5
[2024-05-27 07:00] VITALS: BP 122/71
[2024-05-27 07:50] LABS: Glucose - Point of Care 89 mg/dl (70-99)
[2024-05-27] MEDS: NOVOLOG FLEXPEN-LOW RESISTANCE SC ×3 (08:00→16:59)
--- NOTE | 2024-05-27 08:51 | CM ---
CM reviewed chart, placed call to friend, Nancy ([phone]). Nancy requesting referrals to [facility], [facility], [facility], and [facility]. Per Nancy, this list was provided by patients insurance. Nancy requesting private room if
possible as patient does much better in private room. CM will send referrals in [facility], will continue to update family/friends.
Plan; SNF pending accepting facility, will require insurance auth.
[2024-05-27] MEDS: KEPPRA 500 MG PO ×2 (09:22→21:24)
[2024-05-27] MEDS: COREG 37.5 MG PO ×2 (09:22→21:32)
[2024-05-27] MEDS: ZYLOPRIM 200 MG PO (09:23)
[2024-05-27] MEDS: FARXIGA 10 MG PO (09:23)
[2024-05-27] MEDS: LASIX 20 MG PO (09:24)
[2024-05-27] MEDS: ALDACTONE 50 MG PO (09:24)
[2024-05-27] MEDS: ENTRESTO 24 MG/26 MG 1 TAB PO ×2 (09:24→21:33)
[2024-05-27] MEDS: PEPCID 20 MG PO ×2 (09:24→21:24)
[2024-05-27] MEDS: IMDUR (EXTENDED RELEASE) 60 MG PO (09:24)
--- NOTE | 2024-05-27 10:47 | W.PN.HOSP.TC ---
Today's Communication/Plan
-
Discontinue IV pain meds
Discharged to acute inpatient rehab when bed available
Assessment / Plan
Assessment / Plan
#Witnessed tonic-clonic seizure at home
-CT scan of the head showed no acute findings, mild cortical atrophy and old 9 cm left MCA infarct
-EEG here did not show any signs of epileptic activity; started on Keppra regimen empirically by neurology
-Neurologic status has been close to baseline, remains so today
-Continue with Keppra 500 mg twice daily
-Will need close outpatient follow-up with neurology
#Secondary rhabdomyolysis to seizure
#Acute kidney injury
#troponin elevation in context of rhabdomyolysis
#HAGMA
-Suspect prerenal BARBY, less likely intrinsic from rhabdomyolysis as it improved quickly
-Secondary anion gap metabolic acidosis from seizure and renal insufficiency
-Troponin of muscle origin; no signs of ACS while here
-Resolved with IV fluids, will continue to monitor BMP here
#Severe diffuse pain
-Examination was without any noticeable musculoskeletal abnormalities
-Unclear etiology, was started on opioid analgesics empirically
-Will taper as needed Dilaudid and oxycodone to every 8 hours
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
-Likely cardioembolic in nature, large left MCA infarct on CT
-Complicated by hemiparesis, significant expressive aphasia
-No signs of new focal deficits here
# Paroxysmal AF
-Nonvalvular, elevated [id number], (+) CVA history
-Home medications include Xarelto, carvedilol
-No known history of EP interventions
-Heart rate currently WNL
#HFrEF/cardiomyopathy
#Status post AICD
-TTE on 05/23 showed LVEF 35 to 40% with global hypokinesis
-Unclear etiology, no known history of coronary disease, may be NICM
-GDMT: Carvedilol, ARNI, MRA, SGLT2 inhibitor; Lasix for loop diuresis
-Also on Imdur for antihypertensive therapy, afterload reduction
-Seems euvolemic as of this
#Gout
-Home medications include allopurinol, colchicine
#Obesity
-BMI 34
DVT prophylaxis: Xarelto
Diet: Sodium restricted
CODE STATUS: Full code
Anticipated Discharge: Today
Subjective/Interval History
-
Date of Service: May 27, 2024
Seen and examined at bedside. No acute events overnight. AFVSS this morning.
He denies any pain, no longer receiving IV pain medications
Remainder of history limited by baseline expressive aphasia
Objective Data
-
Vital Signs:
Vital Signs
Temp Pulse Resp BP Pulse Ox
98.3 F 72 16 122/71 98
05/27/24 07:00 05/27/24 09:22 05/27/24 07:00 05/27/24 09:22 05/27/24 07:00
I&O
05/26/24 05/27/24 05/28/24
06:59 06:59 06:59
Intake Total 960 / 960 600 / 600 240 / 240
Output Total 575 / 575
Balance 385 / 385 600 / 600 240 / 240
Review of Systems
-
Unable to obtain full review of systems at this time due to: Other (Expressive aphasia)
Physical Exam
-
General: No Apparent Distress, Comfortable and Obese
HEENT: Normocephalic, Atraumatic and Moist Mucous Membranes
Respiratory: Clear to Auscultation and Non Labored Respirations
Cardiac: Regular Rhythm and S1/S2; Negative Murmur, Rub or Gallop
GI: Soft, Nontender, Nondistended and Normal Bowel Sounds
Musculoskeletal: No Clubbing, No Cyanosis and No Edema
Skin: Warm, Dry and Normal Turgor; Negative Rash
Neuro: AO x 3, Central Nerve's Intact and Other (Left hemiparesis, expressive aphasia)
[2024-05-27 12:16] LABS: Glucose - Point of Care 86 mg/dl (70-99)
[2024-05-27 16:20] VITALS: BP 106/71
[2024-05-27 16:53] LABS: Glucose - Point of Care 124 mg/dl (70-99)
[2024-05-27] MEDS: XARELTO 20 MG PO (17:29)
[2024-05-27] MEDS: LIPITOR 40 MG PO (21:33)
[2024-05-27] MEDS: SEROQUEL 50 MG PO (21:37)
[2024-05-27] MEDS: ROXICODONE 5 MG PO (21:38)
[2024-05-27 21:45] LABS: Glucose - Point of Care 103 mg/dl (70-99)
--- NOTE | 2024-05-27 21:54 | W.PN.UPDATE ---
Update Note
Progress Note Update
family would like covid checked as pt had an exposure from a visitor. Pt w.o symptoms thus far.
[2024-05-27 22:10] VITALS: BP 121/79
[2024-05-27 23:14] LABS: COVID-19 Antigen Negative (Negative)
[2024-05-28 06:00] VITALS: BMI 33.5
[2024-05-28 07:30] VITALS: BP 104/62
[2024-05-28 08:18] LABS: Glucose - Point of Care 94 mg/dl (70-99)
[2024-05-28] MEDS: NOVOLOG FLEXPEN-LOW RESISTANCE SC ×3 (08:25→17:36)
[2024-05-28] MEDS: ALDACTONE 50 MG PO (09:15)
[2024-05-28] MEDS: LASIX PO (09:16)
[2024-05-28] MEDS: PEPCID 20 MG PO ×2 (09:16→21:42)
[2024-05-28] MEDS: ENTRESTO 24 MG/26 MG 1 TAB PO ×2 (09:17→21:42)
[2024-05-28] MEDS: FARXIGA 10 MG PO (09:19)
[2024-05-28] MEDS: IMDUR (EXTENDED RELEASE) 60 MG PO (09:19)
[2024-05-28] MEDS: COREG 37.5 MG PO ×2 (09:19→21:42)
[2024-05-28] MEDS: ZYLOPRIM 200 MG PO (09:19)
[2024-05-28] MEDS: KEPPRA 500 MG PO ×2 (09:20→21:45)
[2024-05-28 12:11] LABS: Glucose - Point of Care 126 mg/dl (70-99)
--- NOTE | 2024-05-28 12:45 | PN.CDI ---
CDI
- -
CDI:
Physician Documentation Request
Admit Date: 05/22/24 21:02
Dear Doctor Luis E,
Clinical Indicators:
Patient admitted with seizures.
05/26 PN, 'Non-SD troponin elevation likely function of rhabdo.
PN, '-Troponin of muscle origin; no signs of ACS while here'
Troponin trend:
05/22/24 05/22/24
18:04 23:54
Troponin I 0.036 H* 0.043 H*
Please clarify the etiology of the troponin elevation:
Non ischemic myocardial injury
Troponin elevation only (documentation complete)
Other, please specify
Use of terms such as suspected, likely, concern for, or probable (associated with a specific diagnosis that is being evaluated, monitored, or treated as if it exists) are acceptable and can be coded in the inpatient setting, when documented at the
time of discharge.
Thank you,
Hawa Quesada RN BSN
CDI Specialist
available via tiger text
Please use your independent medical judgment in providing your response.
--- NOTE | 2024-05-28 13:21 | CM ---
CM spoke with patients friend, Nancy, reports [facility] can accept patient and offer private room. Nancy discussed with patients son, son will be touring facility. CM will await acceptance from family on facility, patient will need SNF
authorization. CM will continue to follow for all discharge planning needs.
Plan; SNF pending family decision, will need insurance authorization.
[2024-05-28 15:30] VITALS: BP 149/76
--- NOTE | 2024-05-28 17:09 | W.PN.HOSP.TC ---
Today's Communication/Plan
-
Transition to oral Keppra.
Pending placement to [facility] facility.
Assessment / Plan
Assessment / Plan
#Witnessed tonic-clonic seizure at home
-CT scan of the head showed no acute findings, mild cortical atrophy and old 9 cm left MCA infarct
-EEG here did not show any signs of epileptic activity; started on Keppra regimen empirically by neurology
-Neurologic status has been close to baseline, remains so today
-Continue with Keppra 500 mg twice daily
-Will need close outpatient follow-up with neurology
#Secondary rhabdomyolysis to seizure
#Acute kidney injury
#troponin elevation in context of rhabdomyolysis
#HAGMA
-Suspect prerenal BARBY, less likely intrinsic from rhabdomyolysis as it improved quickly
-Secondary anion gap metabolic acidosis from seizure and renal insufficiency
-Troponin of muscle origin; no signs of ACS while here
-Resolved with IV fluids, will continue to monitor BMP here
#Severe diffuse pain
-Examination was without any noticeable musculoskeletal abnormalities
-Unclear etiology, was started on opioid analgesics empirically
-Will taper as needed Dilaudid and oxycodone to every 8 hours
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
-Likely cardioembolic in nature, large left MCA infarct on CT
-Complicated by hemiparesis, significant expressive aphasia
-No signs of new focal deficits here
# Paroxysmal AF
-Nonvalvular, elevated [id number], (+) CVA history
-Home medications include Xarelto, carvedilol
-No known history of EP interventions
-Heart rate currently WNL
#HFrEF/cardiomyopathy
#Status post AICD
-TTE on 05/23 showed LVEF 35 to 40% with global hypokinesis
-Unclear etiology, no known history of coronary disease, may be NICM
-GDMT: Carvedilol, ARNI, MRA, SGLT2 inhibitor; Lasix for loop diuresis
-Also on Imdur for antihypertensive therapy, afterload reduction
-Seems euvolemic as of this
#Gout
-Home medications include allopurinol, colchicine
#Obesity
-BMI 34
DVT prophylaxis: Xarelto
Diet: Sodium restricted
CODE STATUS: Full code
Anticipated Discharge: 24 - 48 hours
Subjective/Interval History
-
Date of Service: May 28, 2024
Objective Data
-
Vital Signs:
Vital Signs
Temp Pulse Resp BP Pulse Ox
98.1 F 66 18 104/62 100
05/28/24 07:30 05/28/24 09:19 05/28/24 07:30 05/28/24 09:19 05/28/24 07:30
I&O
05/27/24 05/28/24 05/29/24
06:59 06:59 06:59
Intake Total 600 / 600 1560 / 1560 200 / 200
Balance 600 / 600 1560 / 1560 200 / 200
Physical Exam
-
General: No Apparent Distress, Comfortable and Obese
HEENT: Normocephalic, Atraumatic and Moist Mucous Membranes
Respiratory: Clear to Auscultation and Non Labored Respirations
Cardiac: Regular Rhythm and S1/S2; Negative Murmur, Rub or Gallop
GI: Soft, Nontender, Nondistended and Normal Bowel Sounds
Musculoskeletal: No Clubbing, No Cyanosis and No Edema
Skin: Warm, Dry and Normal Turgor; Negative Rash
Neuro: AO x 3, Central Nerve's Intact and Other (Left hemiparesis, expressive aphasia)
[2024-05-28 17:19] LABS: Glucose - Point of Care 125 mg/dl (70-99)
[2024-05-28] MEDS: XARELTO 20 MG PO (17:38)
--- NOTE | 2024-05-28 21:00 | PTCARENOTE ---
Pt refused night time Accu check. Tech attempted to do it again and pt proceeded to say no. Pt remains comfortable. Will continue with current plan.
[2024-05-28] MEDS: LIPITOR 40 MG PO (21:48)
[2024-05-28] MEDS: SEROQUEL 50 MG PO (21:49)
[2024-05-28] MEDS: ROXICODONE 5 MG PO (21:50)
[2024-05-28 23:52] VITALS: BP 110/70
[2024-05-29 06:00] VITALS: BMI 34.2
[2024-05-29 07:00] VITALS: BP 113/71
[2024-05-29 07:49] LABS: Glucose - Point of Care 89 mg/dl (70-99)
[2024-05-29] MEDS: ALDACTONE 50 MG PO (08:25)
[2024-05-29] MEDS: IMDUR (EXTENDED RELEASE) 60 MG PO (08:25)
[2024-05-29] MEDS: FARXIGA 10 MG PO (08:25)
[2024-05-29] MEDS: NOVOLOG FLEXPEN-LOW RESISTANCE SC ×3 (08:25→16:53)
[2024-05-29] MEDS: COREG 37.5 MG PO ×2 (08:25→21:51)
[2024-05-29] MEDS: PEPCID 20 MG PO ×2 (08:25→21:52)
[2024-05-29] MEDS: ZYLOPRIM 200 MG PO (08:25)
[2024-05-29] MEDS: ENTRESTO 24 MG/26 MG 1 TAB PO ×2 (08:25→21:51)
[2024-05-29] MEDS: KEPPRA 500 MG PO ×2 (09:33→21:52)
[2024-05-29] MEDS: LASIX 20 MG PO (09:33)
[2024-05-29 12:37] VITALS: BP 107/67; PULSE 77
[2024-05-29 12:40] VITALS: BP 107/67; PULSE 77
[2024-05-29 12:42] LABS: Glucose - Point of Care 118 mg/dl (70-99)
--- NOTE | 2024-05-29 14:07 | CM ---
Addendum entered by Estephania Franco 05/29/24 15:58:
Spoke with patient, son at bedside and daughter via phone.
Family decided to take patient home with services.
Family chose [facility] phone# [phone], referral faxed to [phone]. await acceptance.
Family will transport home tomorrow 5 pm.
Plan: home with VN
Original Note:
Bed available at [facility].
TC to son Mared, they still have not had a chance to tour.
Son aware patient is ready for d/c from a medical standpoint.
Son is on the way to the hospital now.
Patient requires insurance auth.
Plan: skilled rehab once bed available.
[2024-05-29 15:00] VITALS: BP 92/63
[2024-05-29 16:45] LABS: Glucose - Point of Care 130 mg/dl (70-99)
[2024-05-29] MEDS: XARELTO 20 MG PO (16:53)
--- NOTE | 2024-05-29 17:34 | W.PN.HOSP.TC ---
Today's Communication/Plan
-
Neurologic status remains stable with no recurrent seizure activity while on Keppra.
Discharge planning
Assessment / Plan
Assessment / Plan
#Witnessed tonic-clonic seizure at home
-CT scan of the head showed no acute findings, mild cortical atrophy and old 9 cm left MCA infarct
-EEG here did not show any signs of epileptic activity; started on Keppra regimen empirically by neurology
-Neurologic status has been close to baseline, remains so today
-Continue with Keppra 500 mg twice daily
-Will need close outpatient follow-up with neurology
#Secondary rhabdomyolysis to seizure
#Acute kidney injury
#troponin elevation in context of rhabdomyolysis
#HAGMA
-Suspect prerenal BARBY, less likely intrinsic from rhabdomyolysis as it improved quickly
-Secondary anion gap metabolic acidosis from seizure and renal insufficiency
-Troponin of muscle origin; no signs of ACS while here
-Resolved with IV fluids, will continue to monitor BMP here
#Severe diffuse pain
-Examination was without any noticeable musculoskeletal abnormalities
-Unclear etiology, was started on opioid analgesics empirically
-Will taper as needed Dilaudid and oxycodone to every 8 hours
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
-Likely cardioembolic in nature, large left MCA infarct on CT
-Complicated by hemiparesis, significant expressive aphasia
-No signs of new focal deficits here
# Paroxysmal AF
-Nonvalvular, elevated [id number], (+) CVA history
-Home medications include Xarelto, carvedilol
-No known history of EP interventions
-Heart rate currently WNL
#HFrEF/cardiomyopathy
#Status post AICD
-TTE on 05/23 showed LVEF 35 to 40% with global hypokinesis
-Unclear etiology, no known history of coronary disease, may be NICM
-GDMT: Carvedilol, ARNI, MRA, SGLT2 inhibitor; Lasix for loop diuresis
-Also on Imdur for antihypertensive therapy, afterload reduction
-Seems euvolemic as of this
#Gout
-Home medications include allopurinol, colchicine
#Obesity
-BMI 34
DVT prophylaxis: Xarelto
Diet: Sodium restricted
CODE STATUS: Full code
Anticipated Discharge: Within 24 hours
Subjective/Interval History
-
Date of Service: May 29, 2024
Objective Data
-
Vital Signs:
Vital Signs
Temp Pulse Resp BP Pulse Ox
97.7 F 86 16 92/63 93
05/29/24 15:00 05/29/24 15:00 05/29/24 15:00 05/29/24 15:00 05/29/24 15:00
I&O
05/28/24 05/29/24 05/30/24
06:59 06:59 06:59
Intake Total 1560 / 1560 800 / 800
Balance 1560 / 1560 800 / 800
Physical Exam
-
General: No Apparent Distress, Comfortable and Obese
HEENT: Normocephalic, Atraumatic and Moist Mucous Membranes
Respiratory: Clear to Auscultation and Non Labored Respirations
Cardiac: Regular Rhythm and S1/S2; Negative Murmur, Rub or Gallop
GI: Soft, Nontender, Nondistended and Normal Bowel Sounds
Musculoskeletal: No Clubbing, No Cyanosis and No Edema
Skin: Warm, Dry and Normal Turgor; Negative Rash
Neuro: AO x 3, Central Nerve's Intact and Other (Left hemiparesis, expressive aphasia)
[2024-05-29 21:21] LABS: Glucose - Point of Care 121 mg/dl (70-99)
[2024-05-29] MEDS: LIPITOR 40 MG PO (21:53)
[2024-05-29] MEDS: ROXICODONE 5 MG PO (21:53)
[2024-05-29] MEDS: SEROQUEL 50 MG PO (22:05)
[2024-05-29 22:59] VITALS: BP 114/71
[2024-05-30 06:00] VITALS: BMI 33.8
[2024-05-30 07:15] LABS: Glucose - Point of Care 94 mg/dl (70-99)
[2024-05-30] MEDS: NOVOLOG FLEXPEN-LOW RESISTANCE SC ×3 (07:19→16:43)
[2024-05-30 07:54] VITALS: BP 102/68
[2024-05-30] MEDS: COREG 37.5 MG PO (08:08)
[2024-05-30] MEDS: ENTRESTO 24 MG/26 MG 1 TAB PO (08:09)
[2024-05-30] MEDS: PEPCID 20 MG PO (08:09)
[2024-05-30] MEDS: LASIX PO (08:09)
[2024-05-30] MEDS: ZYLOPRIM 200 MG PO (08:10)
[2024-05-30] MEDS: KEPPRA 500 MG PO (08:10)
[2024-05-30] MEDS: FARXIGA 10 MG PO (08:10)
[2024-05-30] MEDS: ALDACTONE 50 MG PO (08:10)
[2024-05-30] MEDS: IMDUR (EXTENDED RELEASE) 60 MG PO (08:10)
[2024-05-30 12:20] LABS: Glucose - Point of Care 116 mg/dl (70-99)
--- NOTE | 2024-05-30 13:50 | CM ---
TC to patients son Mared re VN.
Mared referred this CM to Sister Nancy at [phone].
Nancy declined VN at this time.
She will take patient to PMD for f/u.
Plan: home today with family and private caregivers thru [facility]. .
Son will transport between 5-5:30 pm.
[2024-05-30 15:00] VITALS: BP 111/75
--- NOTE | 2024-05-30 16:23 | W.DS.TRANS ---
DC Summary - Verify Rep
-
Discharge Instructions:
Discharge Diagnosis/Procedures Seizure
Diet Diabetic, Carb Controlled
Instructions:
Stand-Alone Forms:
Changes to Home Medications: Yes
Discharge Medications:
DC Medications w/original date entered in [facility]
allopurinol 200 mg tablet 200 mg PO DAILY 05/22/24
atorvastatin 40 mg tablet 40 mg PO HS 05/22/24
carvedilol 25 mg tablet 37.5 mg PO BID 05/22/24
colchicine 0.6 mg tablet 0.6 mg PO BIDPRN PRN gout 05/22/24
dapagliflozin propanediol 10 mg tablet (Farxiga) 10 mg PO DAILY 05/22/24
famotidine 20 mg tablet 20 mg PO BID 05/22/24
furosemide 20 mg tablet 20 mg PO DAILY 05/22/24
isosorbide mononitrate 60 mg tablet,extended release 24 hr 60 mg PO DAILY 05/22/24
quetiapine 50 mg tablet 50 mg PO HS 05/22/24
rivaroxaban 20 mg tablet (Xarelto) 20 mg PO DAILY@1700 05/22/24
sacubitril 24 mg-valsartan 26 mg tablet (Entresto) 1 tab PO BID 05/22/24
spironolactone 50 mg tablet 50 mg PO DAILY 05/22/24
levetiracetam 500 mg/5 mL (5 mL) oral solution 500 mg (5 mL) PO BID #60 mL 05/30/24
Home Medication Changes
Keppra initiated
Pending Results: No
[2024-05-30] MEDS: XARELTO 20 MG PO (16:41)
== END 2024-05-30 18:03 | disposition home health service (06) | DRG 101 ==
LOC: 4 WEST ACU 21:02
PROVIDERS: Nurse Practitioner Family; Physician Assistant Medical; ADMITTING PHYSICIAN Internal Medicine; ATTENDING PHYSICIAN Internal Medicine; CONSULT PHYSICIAN Physical Medicine & Rehabilitation; CONSULT PHYSICIAN Psychiatry & Neurology Neurology; EMERGENCY PHYSICIAN Emergency Medicine; FAMILY PHYSICIAN Family Medicine; OTHER PHYSICIAN Internal Medicine Cardiovascular Disease
DX: G40.89 Other seizures (principal); E87.20 Acidosis, unspecified; I69.354 Hemiplegia and hemiparesis following cerebral infarction affecting left non-dominant side; I69.351 Hemiplegia and hemiparesis following cerebral infarction affecting right dominant side; I50.22 Chronic systolic (congestive) heart failure; I42.9 Cardiomyopathy, unspecified; M62.82 Rhabdomyolysis; N17.9 Acute kidney failure, unspecified; I11.0 Hypertensive heart disease with heart failure; E11.65 Type 2 diabetes mellitus with hyperglycemia; E66.9 Obesity, unspecified; Z68.34 Body mass index [BMI] 34.0-34.9, adult; F10.11 Alcohol abuse, in remission; I69.320 Aphasia following cerebral infarction; I69.392 Facial weakness following cerebral infarction; I25.10 Atherosclerotic heart disease of native coronary artery without angina pectoris; I25.2 Old myocardial infarction; E78.5 Hyperlipidemia, unspecified; G47.30 Sleep apnea, unspecified; K21.9 Gastro-esophageal reflux disease without esophagitis; I48.0 Paroxysmal atrial fibrillation; M10.9 Gout, unspecified; M54.50 Low back pain, unspecified; Z79.01 Long term (current) use of anticoagulants; Z79.899 Other long term (current) drug therapy; Z95.810 Presence of automatic (implantable) cardiac defibrillator; Z87.891 Personal history of nicotine dependence
CPT/HCPCS: 70450; 80048; 80053; 80306; 82010; 82077; 82550; 82962; 83036; 83605; 83735; 83880; 84484; 85025; 85027; 85730; 87811; 93005; 93306; 95816; 97116; 97163; 97167; 97530; 97535; 99285; Q9950